=== PATIENT | male | born 1970 | race Caucasian/White ===

== ENCOUNTER 2021-03-08 01:32 | Inpatient (IN) | payer MEDICAID ==
[2021-03-08] VITALS (99 sets, daily range): BP systolic 76–178; BP diastolic 46–126
[~2021-03-08] VITALS: Ht 185.4 cm; Wt 85.6 kg
[2021-03-08] MEDS ORDERED: MORPHINE SULFATE INJECTION 2 MG/ML SYRG IV PRN ×2 (01:45→03:45)
[2021-03-08] MEDS: NOREPINEPHRINE 8 MG/250ML KIT 250 ML IV SCH (01:45)
[2021-03-08] MEDS ORDERED: NITROGLYCERIN 0.4 MG SL TAB SL PRN (01:45)
[2021-03-08] MEDS ORDERED: SODIUM BICARBONATE 50ML VIAL 50 ML in D5W 5% 1,000 ML IV SCH (01:45)
[2021-03-08] MEDS ORDERED: SODIUM BICARBONATE 8.4 % INJ 50ML VIAL IV ONE (02:23)
[2021-03-08 02:24] LABS: Eosinophils # (auto) 0 10 ^3/uL (0-0.8); Lymphocytes # (auto) 0.3 10 ^3/uL (0.4-5.4); Nucleated Red Blood Cells % 0.2 %; White Blood Cell 9.4 10^3/uL (4.4-10.8)
[2021-03-08 02:48] LABS: Basophils # (auto) 0.2 10 ^3/uL (0-0.2); Basophils % (auto) 2.5 % (0.0-2.0); Eosinophils % (auto) 0.3 % (0.0-7.0); Hematocrit 34.8 % (41.0-53.0); Hemoglobin 11.8 g/dL (13.5-17.5); Lymphocytes % (auto) 3.2 % (10.0-50.0); Mean Corpuscular Hemoglobin 31.5 pg (28.0-32.0); Mean Corpuscular Hgb Conc. 33.8 g/dL (32.0-36.0); Mean Corpuscular Volume 93.3 fL (80.0-100.0); Monocytes # (auto) 0.1 10 ^3/uL (0-1.3); Monocytes % (auto) 1.5 % (0.0-12.0); Neutrophils # (auto) 8.7 10 ^3/uL (1.6-8.6); Neutrophils % (auto) 92.5 % (37.0-80.0); Red Blood Cells 3.73 10^6/uL (4.5-5.90); Red Cell Distribution Width 14.7 % (11.8-14.3)
[2021-03-08 03:30] LABS: Calcium 6.3 mg/dL (8.5-10.1); Potassium 3.8 mmol/L (3.5-5.1)
[2021-03-08 03:45] LABS: BUN/Creatinine Ratio 11.2; Bilirubin, Total 4.6 mg/dL (0.2-1.0); Total Protein 5.5 g/dL (6.4-8.2); Uric Acid 10.5 mg/dL (3.5-7.2)
[2021-03-08] MEDS: PIPERACILLIN-TAZOB 2.25GM 50 ML IV SCH ×3 (06:09→21:37)
[2021-03-08 09:28] LABS: INR 1.85 (0.9-1.15); Partial Thromboplastin Time 36.9 sec (23.0-31.2)
[2021-03-08] MEDS ORDERED: ENOXAPARIN SOD 120 MG/0.8 ML SYRINGE SC SCH (10:00)
[2021-03-08] MEDS ORDERED: SODIUM CHLORIDE 0.9% 1,000 ML IV SCH (11:00)
[2021-03-08] MEDS: PANTOPRAZOLE 40 MG/10 ML VIAL INJ IV SCH (12:50)
[2021-03-08 13:18] LABS: Basophils # (auto) 0 10 ^3/uL (0-0.2); Eosinophils # (auto) 0 10 ^3/uL (0-0.8); Hemoglobin 11.4 g/dL (13.5-17.5); Lymphocytes # (auto) 0.3 10 ^3/uL (0.4-5.4); Monocytes # (auto) 0.2 10 ^3/uL (0-1.3); Monocytes % (auto) 2.6 % (0.0-12.0); Nucleated Red Blood Cells % 0.2 %
[2021-03-08 13:20] LABS: Basophils % (auto) 0.5 % (0.0-2.0); Hematocrit 32.5 % (41.0-53.0); Lymphocytes % (auto) 3.3 % (10.0-50.0); Mean Corpuscular Hemoglobin 32.5 pg (28.0-32.0); Mean Corpuscular Hgb Conc. 35.1 g/dL (32.0-36.0); Mean Corpuscular Volume 92.5 fL (80.0-100.0); Neutrophils # (auto) 8.5 10 ^3/uL (1.6-8.6); Neutrophils % (auto) 93.6 % (37.0-80.0); Red Blood Cells 3.51 10^6/uL (4.5-5.90); Red Cell Distribution Width 14.7 % (11.8-14.3); White Blood Cell 9.1 10^3/uL (4.4-10.8)
[2021-03-08 13:58] LABS: BUN/Creatinine Ratio 10.9; Calcium 6.6 mg/dL (8.5-10.1); Potassium 3.9 mmol/L (3.5-5.1)
[2021-03-08] MEDS: SODIUM BICARBONATE 50ML VIAL 50 ML in D5W 5% 1,000 ML IV SCH ×2 (14:29→21:37)
[2021-03-08 14:45] LABS: Urine Amorphous Crystal FEW /hpf (None Seen); Urine Bacteria FEW /hpf (None Seen); Urine Blood 3+ /uL (Negative); Urine Specific Gravity 1.011 (1.001-1.035); Urine WBC 15 /hpf (0 - 3)
[2021-03-08 14:49] LABS: Protein, Urine 110.5 mg/dL (0.0-11.9)
[2021-03-08] MEDS: THIAMINE 100mg/ml INJ (200mg/2ml VIAL) IV SCH (19:35)
[2021-03-08 22:56] LABS: Albumin 2.6 g/dL (3.4-5.0); BUN/Creatinine Ratio 10.3; Calcium 6.4 mg/dL (8.5-10.1)
[2021-03-08 23:06] LABS: Bilirubin, Total 5.8 mg/dL (0.2-1.0); Total Protein 5.1 g/dL (6.4-8.2)
[2021-03-09] VITALS (95 sets, daily range): BP systolic 85–131; BP diastolic 49–74
[2021-03-09] MEDS: NOREPINEPHRINE 8 MG/250ML KIT 250 ML IV SCH (01:45)
[2021-03-09] MEDS ORDERED: VANCOMYCIN PER PHARMACY 0 MG IV SCH (02:15)
[2021-03-09] MEDS ORDERED: VANCOMYCIN 1GM/250ML 250 ML IV ONE (03:00)
[2021-03-09 03:50] LABS: Basophils # (auto) 0 10 ^3/uL (0-0.2); Basophils % (auto) 0.1 % (0.0-2.0); Eosinophils # (auto) 0 10 ^3/uL (0-0.8); Eosinophils % (auto) 0.1 % (0.0-7.0); Hematocrit 30.3 % (41.0-53.0); Hemoglobin 10.7 g/dL (13.5-17.5); Lymphocytes # (auto) 0.4 10 ^3/uL (0.4-5.4); Lymphocytes % (auto) 4.5 % (10.0-50.0); Mean Corpuscular Hemoglobin 32.8 pg (28.0-32.0); Mean Corpuscular Hgb Conc. 35.4 g/dL (32.0-36.0); Mean Corpuscular Volume 92.6 fL (80.0-100.0); Monocytes # (auto) 0.2 10 ^3/uL (0-1.3); Monocytes % (auto) 3.1 % (0.0-12.0); Neutrophils # (auto) 7.3 10 ^3/uL (1.6-8.6); Neutrophils % (auto) 92.2 % (37.0-80.0); Nucleated Red Blood Cells % 0.4 %; Red Blood Cells 3.27 10^6/uL (4.5-5.90); Red Cell Distribution Width 14.7 % (11.8-14.3); White Blood Cell 7.9 10^3/uL (4.4-10.8)
[2021-03-09 04:01] LABS: Albumin 2.4 g/dL (3.4-5.0); Anion Gap 12 (5-15); Calcium 6.2 mg/dL (8.5-10.1); Carbon Dioxide 27 mmol/L (21-32); Chloride 101 mmol/L (98-107); Glucose 111 mg/dL (74-106); Potassium 3.4 mmol/L (3.5-5.1); Sodium 140 mmol/L (136-145)
[2021-03-09 04:12] LABS: INR 1.61 (0.9-1.15); Partial Thromboplastin Time 38.4 sec (23.0-31.2)
[2021-03-09 04:17] LABS: Alanine Aminotransferase 1896 U/L (16-61); Alkaline Phosphatase 52 U/L (45-117); Aspartate Aminotransferase 984 U/L (15-37); BUN/Creatinine Ratio 11.1; Bilirubin, Total 5.8 mg/dL (0.2-1.0); Cholesterol < 50 mg/dL (< 200); Creatine Kinase IFCC 1701 U/L (39-308); GFR African American 9 mL/min; GFR Non-African American 7 mL/min; HDL Cholesterol 10 mg/dL (40-59); LDL Cholesterol 15 mg/dL (< 100); Total Protein 4.8 g/dL (6.4-8.2); Triglycerides 112 mg/dL (< 150)
[2021-03-09 04:24] LABS: Blood Urea Nitrogen 93 mg/dL (7-18)
[2021-03-09] MEDS ORDERED: MIDAZOLAM HCL 2MG/2ML 2ml VIAL (1mg/ml) ONE (04:42)
[2021-03-09] MEDS ORDERED: fentaNYL CITRATE 100 MCG/2 ML VL ONE (04:42)
[2021-03-09] MEDS ORDERED: MORPHINE SULF PF 2 MG/2 ML SYRG ONE (04:42)
[2021-03-09] MEDS ORDERED: oxyTOCIN 10 UNIT/ML 10ML VIAL ONE (04:58)
[2021-03-09] MEDS: SODIUM BICARBONATE 50ML VIAL 50 ML in D5W 5% 1,000 ML IV SCH (06:00)
[2021-03-09] MEDS: PIPERACILLIN-TAZOB 2.25GM 50 ML IV SCH (06:00)
[2021-03-09] MEDS: IPRATROPIUM BROM 0.5 MG/2.5ML INH SOL NEB PRN (07:06)
[2021-03-09] MEDS: ALBUTEROL SULF 2.5 MG/0.5ML(0.5%) NEB SOLN NEB PRN (07:06)
[2021-03-09] MEDS: PROPOFOL 100 ML IV SCH (08:29)
[2021-03-09] MEDS: PANTOPRAZOLE 40 MG/10 ML VIAL INJ IV SCH (09:16)
[2021-03-09] MEDS: THIAMINE 100mg/ml INJ (200mg/2ml VIAL) IV SCH (09:17)
[2021-03-09 10:08] LABS: Hepatitis B Surface Antibody Negative
[2021-03-09 10:23] LABS: Albumin 2.4 g/dL (3.4-5.0); Calcium 6.5 mg/dL (8.5-10.1); Potassium 3.3 mmol/L (3.5-5.1)
[2021-03-09 10:31] LABS: Bilirubin, Total 6.2 mg/dL (0.2-1.0)
[2021-03-09 10:42] LABS: Hepatitis A Total Antibody Negative
[2021-03-09] MEDS: CALCIUM ACETATE 667 MG CAP PO SCH ×3 (10:43→21:53)
[2021-03-09] MEDS: POTASSIUM CHL 20MEQ/100ML 100 ML IV SCH ×2 (10:43→12:37)
[2021-03-09] MEDS: SOD CHL 0.45% 1,000 ML IV SCH ×2 (10:43→18:10)
[2021-03-09 11:10] LABS: Alcohol, Urine < 3.0 mg/dL (0-10); Amphetamine Screen, Urine POSITIVE (NEGATIVE); Barbiturate Scree,Urine NEGATIVE (NEGATIVE); Benzodiazephine Screen, Urine POSITIVE (NEGATIVE); Cannabinoid Screen, Urine NEGATIVE (NEGATIVE); Cocaine Screen, Urine NEGATIVE (NEGATIVE); Opiate Scree,Urine NEGATIVE (NEGATIVE)
[2021-03-09 11:18] LABS: Phencyclidine Screen, Urine NEGATIVE (NEGATIVE)
[2021-03-09] MEDS: MEROPENEM 1GM IVPB 100 ML IV SCH (12:37)
[2021-03-09 12:38] LABS: Hepatitis A Ab IgM Negative; Hepatitis B Core IgM Negative
[2021-03-09 12:39] LABS: Hepatitis B Core Total AB Negative; Hepatitis B Surface Antigen Negative (Negative); Hepatitis C Antibody Negative (Negative)
[2021-03-09] MEDS ORDERED: MEROPENEM 1GM IVPB 100 ML IV SCH (14:00)
[2021-03-09 22:42] LABS: Albumin 2.5 g/dL (3.4-5.0); Calcium 6.9 mg/dL (8.5-10.1); Potassium 3.7 mmol/L (3.5-5.1)
[2021-03-09 22:50] LABS: BUN/Creatinine Ratio 11.3; Bilirubin, Total 7.1 mg/dL (0.2-1.0); Total Protein 5.3 g/dL (6.4-8.2)
[2021-03-10] VITALS (107 sets, daily range): BP systolic 104–129; BP diastolic 67–84
[2021-03-10] MEDS: NOREPINEPHRINE 8 MG/250ML KIT 250 ML IV SCH (01:45)
[2021-03-10] MEDS: SOD CHL 0.45% 1,000 ML IV SCH ×3 (02:30→17:30)
[2021-03-10 03:27] LABS: Basophils # (auto) 0 10 ^3/uL (0-0.2); Basophils % (auto) 0.4 % (0.0-2.0); Eosinophils # (auto) 0 10 ^3/uL (0-0.8); Eosinophils % (auto) 0.3 % (0.0-7.0); Hematocrit 32.5 % (41.0-53.0); Hemoglobin 11.4 g/dL (13.5-17.5); Lymphocytes # (auto) 0.5 10 ^3/uL (0.4-5.4); Lymphocytes % (auto) 5.3 % (10.0-50.0); Mean Corpuscular Hemoglobin 32.2 pg (28.0-32.0); Mean Corpuscular Hgb Conc. 35.2 g/dL (32.0-36.0); Mean Corpuscular Volume 91.7 fL (80.0-100.0); Monocytes # (auto) 0.7 10 ^3/uL (0-1.3); Monocytes % (auto) 7.3 % (0.0-12.0); Neutrophils # (auto) 8.6 10 ^3/uL (1.6-8.6); Neutrophils % (auto) 86.7 % (37.0-80.0); Nucleated Red Blood Cells % 0.1 %; Red Blood Cells 3.54 10^6/uL (4.5-5.90); Red Cell Distribution Width 14.6 % (11.8-14.3); White Blood Cell 9.9 10^3/uL (4.4-10.8)
[2021-03-10 04:16] LABS: Calcium 6.9 mg/dL (8.5-10.1); Potassium 3.9 mmol/L (3.5-5.1)
[2021-03-10 04:19] LABS: BUN/Creatinine Ratio 11.3; Phosphorus 7.3 mg/dL (2.5-4.90); Uric Acid 12.8 mg/dL (3.5-7.2)
[2021-03-10] MEDS: CALCIUM ACETATE 667 MG CAP PO SCH ×3 (06:33→23:19)
[2021-03-10] MEDS: PROPOFOL 100 ML IV SCH (08:30)
[2021-03-10] MEDS: PANTOPRAZOLE 40 MG/10 ML VIAL INJ IV SCH (09:16)
[2021-03-10] MEDS: MEROPENEM 1GM IVPB 100 ML IV SCH (09:16)
[2021-03-10] MEDS: THIAMINE 100mg/ml INJ (200mg/2ml VIAL) IV SCH (09:17)
[2021-03-10 10:44] LABS: Albumin 2.4 g/dL (3.4-5.0); Calcium 7.2 mg/dL (8.5-10.1); Potassium 3.9 mmol/L (3.5-5.1)
[2021-03-10 10:53] LABS: BUN/Creatinine Ratio 11.5; Bilirubin, Total 6.7 mg/dL (0.2-1.0); Total Protein 5.3 g/dL (6.4-8.2)
[2021-03-10] MEDS ORDERED: FUROSEMIDE 20 MG/2 ML VIAL IV ONE (11:30)
[2021-03-10] MEDS ORDERED: ceFAZolin 1GM/50ML 50 ML IV SCH (14:00)
[2021-03-10] MEDS ORDERED: ceFAZolin 1GM/50ML 50 ML IV ONE (14:00)
[2021-03-10] MEDS: ceFAZolin 1GM/50ML 50 ML IV SCH (23:19)
[2021-03-11] VITALS (90 sets, daily range): BP systolic 113–146; BP diastolic 73–106
[2021-03-11 00:03] LABS: Albumin 2.4 g/dL (3.4-5.0); BUN/Creatinine Ratio 11.7; Calcium 7.3 mg/dL (8.5-10.1); Potassium 3.6 mmol/L (3.5-5.1)
[2021-03-11 00:19] LABS: Bilirubin, Total 6.6 mg/dL (0.2-1.0); Total Protein 5.6 g/dL (6.4-8.2)
[2021-03-11] MEDS: NOREPINEPHRINE 8 MG/250ML KIT 250 ML IV SCH (01:45)
[2021-03-11 03:59] LABS: Hematocrit 34.8 % (41.0-53.0); Hemoglobin 12.3 g/dL (13.5-17.5); Mean Corpuscular Hemoglobin 32.2 pg (28.0-32.0); Mean Corpuscular Hgb Conc. 35.2 g/dL (32.0-36.0); Mean Corpuscular Volume 91.2 fL (80.0-100.0); Red Blood Cells 3.81 10^6/uL (4.5-5.90); Red Cell Distribution Width 14.7 % (11.8-14.3); White Blood Cell 8.5 10^3/uL (4.4-10.8)
[2021-03-11 04:20] LABS: BUN/Creatinine Ratio 13.1; Calcium 7.5 mg/dL (8.5-10.1); Potassium 3.5 mmol/L (3.5-5.1)
[2021-03-11 04:23] LABS: Basophils % (manual) 0 (0.0-2.0); Blast Cells 0; Eosinophils % (manual) 0 (0-7); Myelocytes % 0; Promyelocytes % 0; Reactive Lymphocytes 0
[2021-03-11 05:49] LABS: Band Neutrophils % (manual) 3; Lymphocytes % (manual) 7 (10.0-50.0); Metamyelocytes % 1; Monocytes % (manual) 6 (0-12)
[2021-03-11] MEDS: CALCIUM ACETATE 667 MG CAP PO SCH ×3 (06:13→22:00)
[2021-03-11] MEDS: PROPOFOL 100 ML IV SCH (08:30)
[2021-03-11 09:22] LABS: INR 1.21 (0.9-1.15)
[2021-03-11] MEDS: POTASSIUM CHL 20MEQ/100ML 100 ML IV SCH ×2 (10:03→12:15)
[2021-03-11] MEDS: ceFAZolin 1GM/50ML 50 ML IV SCH ×2 (10:03→21:04)
[2021-03-11] MEDS: PANTOPRAZOLE 40 MG/10 ML VIAL INJ IV SCH (10:04)
[2021-03-11] MEDS: THIAMINE 100mg/ml INJ (200mg/2ml VIAL) IV SCH (10:04)
[2021-03-11] MEDS: SOD CHL 0.45% 1,000 ML IV SCH ×2 (11:21→17:44)
[2021-03-11] MEDS ORDERED: Jevity 1.2 Cal/Fiber 1 Liter GT SCH (15:30)
[2021-03-12] VITALS (67 sets, daily range): BP systolic 124–167; BP diastolic 78–113
[2021-03-12 04:53] LABS: Basophils # (auto) 0.1 10 ^3/uL (0-0.2); Basophils % (auto) 0.6 % (0.0-2.0); Eosinophils # (auto) 0.2 10 ^3/uL (0-0.8); Eosinophils % (auto) 2.1 % (0.0-7.0); Hematocrit 35.7 % (41.0-53.0); Hemoglobin 12.4 g/dL (13.5-17.5); Lymphocytes # (auto) 0.4 10 ^3/uL (0.4-5.4); Lymphocytes % (auto) 4.9 % (10.0-50.0); Mean Corpuscular Hemoglobin 31.6 pg (28.0-32.0); Mean Corpuscular Hgb Conc. 34.7 g/dL (32.0-36.0); Mean Corpuscular Volume 91.3 fL (80.0-100.0); Monocytes % (auto) 12.7 % (0.0-12.0); Neutrophils # (auto) 6.3 10 ^3/uL (1.6-8.6); Neutrophils % (auto) 79.7 % (37.0-80.0); Red Blood Cells 3.91 10^6/uL (4.5-5.90); Red Cell Distribution Width 14.8 % (11.8-14.3); White Blood Cell 7.9 10^3/uL (4.4-10.8)
[2021-03-12 05:10] LABS: Calcium 7.7 mg/dL (8.5-10.1); Potassium 3.2 mmol/L (3.5-5.1)
[2021-03-12] MEDS: CALCIUM ACETATE 667 MG CAP PO SCH ×4 (06:00→22:00)
[2021-03-12] MEDS: PROPOFOL 100 ML IV SCH (08:30)
[2021-03-12] MEDS: NOREPINEPHRINE 8 MG/250ML KIT 250 ML IV SCH (08:46)
[2021-03-12] MEDS: ceFAZolin 1GM/50ML 50 ML IV SCH ×2 (09:27→21:04)
[2021-03-12] MEDS: PANTOPRAZOLE 40 MG/10 ML VIAL INJ IV SCH (09:31)
[2021-03-12] MEDS: THIAMINE 100mg/ml INJ (200mg/2ml VIAL) IV SCH (09:31)
[2021-03-12] MEDS: SOD CHL 0.45% 1,000 ML IV SCH ×2 (10:46→18:26)
[2021-03-12] MEDS: POTASSIUM CHL 20MEQ/100ML 100 ML IV SCH ×3 (10:46→14:51)
[2021-03-12 14:09] LABS: Calcium 7.5 mg/dL (8.5-10.1); Potassium 3.3 mmol/L (3.5-5.1)
[2021-03-12] MEDS ORDERED: TEMA30CA PO (17:29)
[2021-03-12] MEDS ORDERED: CLON1TAB PO (17:29)
[2021-03-12] MEDS ORDERED: GABA300C10 PO (17:29)
[2021-03-12] MEDS ORDERED: DIPH25TA31 PO (17:29)
[2021-03-12] MEDS ORDERED: OLAN1TAB19 PO (17:29)
[2021-03-12] MEDS: IPRATROPIUM BROM 0.5 MG/2.5ML INH SOL NEB PRN (18:54)
[2021-03-12] MEDS: ALBUTEROL SULF 2.5 MG/0.5ML(0.5%) NEB SOLN NEB PRN (18:54)
[2021-03-13] VITALS (71 sets, daily range): BP systolic 127–168; BP diastolic 74–106
[2021-03-13] MEDS: NOREPINEPHRINE 8 MG/250ML KIT 250 ML IV SCH (01:45)
[2021-03-13] MEDS: SOD CHL 0.45% 1,000 ML IV SCH ×2 (02:30→17:26)
[2021-03-13] MEDS: CALCIUM ACETATE 667 MG CAP PO SCH ×3 (06:00→19:43)
[2021-03-13 06:26] LABS: Hematocrit 36.3 % (41.0-53.0); Hemoglobin 12.8 g/dL (13.5-17.5); Mean Corpuscular Hemoglobin 32.3 pg (28.0-32.0); Mean Corpuscular Hgb Conc. 35.3 g/dL (32.0-36.0); Mean Corpuscular Volume 91.5 fL (80.0-100.0); Red Blood Cells 3.97 10^6/uL (4.5-5.90); Red Cell Distribution Width 14.9 % (11.8-14.3); White Blood Cell 8.6 10^3/uL (4.4-10.8)
[2021-03-13 06:33] LABS: Basophils % (manual) 0 (0.0-2.0); Blast Cells 0; Eosinophils % (manual) 0 (0-7); Metamyelocytes % 0; Myelocytes % 0; Promyelocytes % 0; Reactive Lymphocytes 0
[2021-03-13] MEDS: IPRATROPIUM BROM 0.5 MG/2.5ML INH SOL NEB PRN (06:40)
[2021-03-13] MEDS: ALBUTEROL SULF 2.5 MG/0.5ML(0.5%) NEB SOLN NEB PRN (06:40)
[2021-03-13 07:59] LABS: Albumin 2.4 g/dL (3.4-5.0); Magnesium 2.6 mg/dL (1.6-2.6); Potassium 3.4 mmol/L (3.5-5.1)
[2021-03-13 08:05] LABS: BUN/Creatinine Ratio 16.6; Bilirubin, Total 4.5 mg/dL (0.2-1.0); Total Protein 5.8 g/dL (6.4-8.2)
[2021-03-13] MEDS: PROPOFOL 100 ML IV SCH (08:30)
[2021-03-13] MEDS: ceFAZolin 1GM/50ML 50 ML IV SCH ×2 (08:55→20:39)
[2021-03-13] MEDS: PANTOPRAZOLE 40 MG/10 ML VIAL INJ IV SCH (09:53)
[2021-03-13] MEDS: THIAMINE 100mg/ml INJ (200mg/2ml VIAL) IV SCH (09:53)
[2021-03-13] MEDS: ENOXAPARIN SOD 30 MG/0.3 ML SYRINGE SC SCH (09:54)
[2021-03-13 11:29] LABS: Band Neutrophils % (manual) 2; Lymphocytes % (manual) 7 (10.0-50.0); Monocytes % (manual) 12 (0-12)
[2021-03-13] MEDS: POTASSIUM CHL 20MEQ/100ML 100 ML IV SCH ×2 (13:02→14:52)
[2021-03-14] VITALS (83 sets, daily range): BP systolic 131–181; BP diastolic 75–123
[2021-03-14] MEDS: SOD CHL 0.45% 1,000 ML IV SCH ×4 (00:42→19:20)
[2021-03-14] MEDS: NOREPINEPHRINE 8 MG/250ML KIT 250 ML IV SCH ×2 (01:45→22:58)
[2021-03-14 03:44] LABS: Hematocrit 35.1 % (41.0-53.0); Hemoglobin 12.2 g/dL (13.5-17.5); Mean Corpuscular Hemoglobin 31.9 pg (28.0-32.0); Mean Corpuscular Hgb Conc. 34.8 g/dL (32.0-36.0); Mean Corpuscular Volume 91.6 fL (80.0-100.0); Red Blood Cells 3.84 10^6/uL (4.5-5.90); White Blood Cell 9.5 10^3/uL (4.4-10.8)
[2021-03-14 03:59] LABS: Basophils % (manual) 0 (0.0-2.0); Blast Cells 0; Myelocytes % 0; Promyelocytes % 0; Reactive Lymphocytes 0
[2021-03-14 04:04] LABS: BUN/Creatinine Ratio 19.7; Calcium 8.1 mg/dL (8.5-10.1); Potassium 3.5 mmol/L (3.5-5.1)
[2021-03-14] MEDS: CALCIUM ACETATE 667 MG CAP PO SCH ×4 (04:29→21:41)
[2021-03-14 05:12] LABS: Band Neutrophils % (manual) 10; Eosinophils % (manual) 1 (0-7); Lymphocytes % (manual) 5 (10.0-50.0); Metamyelocytes % 1; Monocytes % (manual) 8 (0-12)
[2021-03-14] MEDS: PROPOFOL 100 ML IV SCH (08:30)
[2021-03-14] MEDS: ceFAZolin 1GM/50ML 50 ML IV SCH ×2 (08:51→21:04)
[2021-03-14] MEDS: PANTOPRAZOLE 40 MG/10 ML VIAL INJ IV SCH (09:53)
[2021-03-14] MEDS: ENOXAPARIN SOD 30 MG/0.3 ML SYRINGE SC SCH (09:54)
[2021-03-14] MEDS: THIAMINE 100mg/ml INJ (200mg/2ml VIAL) IV SCH (09:54)
[2021-03-14] MEDS: hydrALAZINE HCL 20 MG/ML VL IV PRN (12:05)
[2021-03-14] MEDS ORDERED: amLODIPine BESYLATE 5 MG TAB ONE (15:59)
[2021-03-14] MEDS ORDERED: clonazePAM 0.5 MG TAB PO ONE (16:00)
[2021-03-14] MEDS ORDERED: amLODIPine BESYLATE 5 MG TAB PO ONE (16:00)
[2021-03-14] MEDS: GABAPENTIN 300 MG CAP PO SCH (21:41)
[2021-03-14] MEDS: OLANZapine 5 MG TAB PO SCH (21:42)
[2021-03-14] MEDS: diphenhdrAMINE HCL 25 MG CAP PO SCH (22:03)
[2021-03-15] VITALS (9 sets, daily range): BP systolic 12–165; BP diastolic 86–100
[2021-03-15] MEDS: hydrALAZINE HCL 20 MG/ML VL IV PRN ×2 (00:15→06:42)
[2021-03-15] MEDS: SOD CHL 0.45% 1,000 ML IV SCH (04:46)
[2021-03-15 06:28] LABS: Basophils # (auto) 0 10 ^3/uL (0-0.2); Basophils % (auto) 0.3 % (0.0-2.0); Eosinophils # (auto) 0.1 10 ^3/uL (0-0.8); Eosinophils % (auto) 0.5 % (0.0-7.0); Hematocrit 36.1 % (41.0-53.0); Hemoglobin 12.4 g/dL (13.5-17.5); Lymphocytes # (auto) 0.6 10 ^3/uL (0.4-5.4); Lymphocytes % (auto) 5.8 % (10.0-50.0); Mean Corpuscular Hemoglobin 31.7 pg (28.0-32.0); Mean Corpuscular Hgb Conc. 34.3 g/dL (32.0-36.0); Mean Corpuscular Volume 92.4 fL (80.0-100.0); Monocytes # (auto) 0.9 10 ^3/uL (0-1.3); Neutrophils # (auto) 9.5 10 ^3/uL (1.6-8.6); Neutrophils % (auto) 85.4 % (37.0-80.0); Nucleated Red Blood Cells % 0.1 %; Red Cell Distribution Width 15.4 % (11.8-14.3); White Blood Cell 11.1 10^3/uL (4.4-10.8)
[2021-03-15 06:38] LABS: BUN/Creatinine Ratio 23.7; Calcium 8.3 mg/dL (8.5-10.1); Potassium 3.5 mmol/L (3.5-5.1)
[2021-03-15] MEDS: CALCIUM ACETATE 667 MG CAP PO SCH ×2 (06:40→14:02)
[2021-03-15] MEDS: diphenhdrAMINE HCL 25 MG CAP PO SCH (06:40)
[2021-03-15] MEDS: LORazepam 2MG/ML-1ML VIAL IV PRN ×2 (06:41→21:33)
[2021-03-15] MEDS: D5W 5% 1,000 ML IV SCH ×2 (08:41→18:27)
[2021-03-15] MEDS: ceFAZolin 1GM/50ML 50 ML IV SCH ×2 (08:44→21:32)
[2021-03-15] MEDS: THIAMINE 100mg/ml INJ (200mg/2ml VIAL) IV SCH (10:27)
[2021-03-15] MEDS: ENOXAPARIN SOD 30 MG/0.3 ML SYRINGE SC SCH (10:27)
[2021-03-15] MEDS: PANTOPRAZOLE 40 MG/10 ML VIAL INJ IV SCH (10:29)
[2021-03-15] MEDS ORDERED: diphenhdrAMINE HCL 25 MG CAP PO PRN (10:30)
[2021-03-15] MEDS: OLANZapine 5 MG TAB PO SCH (10:30)
[2021-03-15] MEDS: amLODIPine BESYLATE 5 MG TAB PO SCH (10:30)
[2021-03-15] MEDS: clonazePAM 0.5 MG TAB PO SCH (11:04)
[2021-03-15 18:18] LABS: BUN/Creatinine Ratio 24.5; Calcium 8.3 mg/dL (8.5-10.1); Potassium 3.7 mmol/L (3.5-5.1)
[2021-03-15] MEDS: ALBUTEROL SULF 2.5 MG/0.5ML(0.5%) NEB SOLN NEB PRN (19:40)
[2021-03-15] MEDS: IPRATROPIUM BROM 0.5 MG/2.5ML INH SOL NEB PRN (19:40)
[2021-03-16] VITALS (15 sets, daily range): BP systolic 103–169; BP diastolic 72–102
[2021-03-16] MEDS: CALCIUM ACETATE 667 MG CAP PO SCH ×4 (00:31→22:00)
[2021-03-16] MEDS: OLANZapine 5 MG TAB PO SCH ×3 (00:31→22:00)
[2021-03-16] MEDS: GABAPENTIN 300 MG CAP PO SCH ×2 (00:31→22:00)
[2021-03-16] MEDS: NOREPINEPHRINE 8 MG/250ML KIT 250 ML IV SCH (00:32)
[2021-03-16 06:13] LABS: Hematocrit 32.4 % (41.0-53.0); Hemoglobin 11.2 g/dL (13.5-17.5); Mean Corpuscular Hemoglobin 32.6 pg (28.0-32.0); Mean Corpuscular Hgb Conc. 34.7 g/dL (32.0-36.0); Mean Corpuscular Volume 93.9 fL (80.0-100.0); Red Blood Cells 3.45 10^6/uL (4.5-5.90); Red Cell Distribution Width 15.8 % (11.8-14.3); White Blood Cell 9.8 10^3/uL (4.4-10.8)
[2021-03-16 06:26] LABS: Band Neutrophils % (manual) 0; Basophils % (manual) 0 (0.0-2.0); Blast Cells 0; Metamyelocytes % 0; Promyelocytes % 0; Reactive Lymphocytes 0
[2021-03-16 06:27] LABS: BUN/Creatinine Ratio 23.4; Calcium 8.4 mg/dL (8.5-10.1); Potassium 3.7 mmol/L (3.5-5.1)
[2021-03-16 06:55] LABS: Eosinophils % (manual) 6 (0-7); Lymphocytes % (manual) 5 (10.0-50.0); Monocytes % (manual) 7 (0-12); Myelocytes % 1
[2021-03-16] MEDS: D5W 5% 1,000 ML IV SCH ×4 (07:30→20:45)
[2021-03-16] MEDS: ceFAZolin 1GM/50ML 50 ML IV SCH ×2 (07:48→17:44)
[2021-03-16] MEDS: LORazepam 2MG/ML-1ML VIAL IV PRN ×2 (07:49→12:59)
[2021-03-16] MEDS: THIAMINE 100mg/ml INJ (200mg/2ml VIAL) IV SCH (10:30)
[2021-03-16] MEDS: ENOXAPARIN SOD 40 MG/0.4 ML SYRINGE SC SCH (10:30)
[2021-03-16] MEDS ORDERED: FUROSEMIDE 40 MG/4 ML VIAL ONE (10:44)
[2021-03-16] MEDS ORDERED: FUROSEMIDE 40 MG/4 ML VIAL IV ONE (10:50)
[2021-03-16] MEDS ORDERED: TPN PER PHARMACY 0 ML IV SCH (11:00)
[2021-03-16] MEDS: clonazePAM 0.5 MG TAB PO SCH (11:04)
[2021-03-16] MEDS: amLODIPine BESYLATE 5 MG TAB PO SCH (11:05)
[2021-03-16 11:18] LABS: Albumin 2.5 g/dL (3.4-5.0); Bilirubin, Direct 2.3 mg/dL (0-0.2); Magnesium 1.7 mg/dL (1.6-2.6)
[2021-03-16 11:22] LABS: Bilirubin, Total 3.2 mg/dL (0.2-1.0); Phosphorus 4.3 mg/dL (2.5-4.90); Pre Albumin 16.1 mg/dL (20.0-40.0); Total Protein 6.2 g/dL (6.4-8.2)
[2021-03-16 11:31] LABS: INR 1.12 (0.9-1.15); Partial Thromboplastin Time 24.2 sec (23.0-31.2)
[2021-03-16] MEDS ORDERED: HALOPERIDOL LACTATE 5 MG/ML INJ VIAL IM ONE (15:00)
[2021-03-16] MEDS: PANTOPRAZOLE 40 MG/10 ML VIAL INJ IV SCH (16:22)
[2021-03-16] MEDS ORDERED: TPN PER PHARMACY IV NR ×8 (20:00)
[2021-03-16] MEDS: ALBUTEROL SULF 2.5 MG/0.5ML(0.5%) NEB SOLN NEB PRN (21:58)
[2021-03-16] MEDS: IPRATROPIUM BROM 0.5 MG/2.5ML INH SOL NEB PRN (21:58)
[2021-03-17] VITALS (12 sets, daily range): BP systolic 120–155; BP diastolic 86–98
[2021-03-17] MEDS ORDERED: DEXTROSE (50%) 50ML SYRG IV SCH
[2021-03-17] MEDS: ceFAZolin 1GM/50ML 50 ML IV SCH ×3 (00:56→17:13)
[2021-03-17] MEDS: ACCU-CHEK COMFORT CURVE STRIP VI SCH ×6 (01:30→21:17)
[2021-03-17] MEDS: InsuLIN REG 1unit/0.01ml Soln (100units/ml) SC SCH ×5 (01:30→21:17)
[2021-03-17 05:38] LABS: Basophils # (auto) 0 10 ^3/uL (0-0.2); Basophils % (auto) 0.6 % (0.0-2.0); Eosinophils # (auto) 0.2 10 ^3/uL (0-0.8); Hematocrit 33.8 % (41.0-53.0); Hemoglobin 11.3 g/dL (13.5-17.5); Lymphocytes # (auto) 0.5 10 ^3/uL (0.4-5.4); Mean Corpuscular Hemoglobin 31.7 pg (28.0-32.0); Mean Corpuscular Hgb Conc. 33.3 g/dL (32.0-36.0); Monocytes # (auto) 0.8 10 ^3/uL (0-1.3); Monocytes % (auto) 9.5 % (0.0-12.0); Neutrophils # (auto) 7.2 10 ^3/uL (1.6-8.6); Neutrophils % (auto) 81.9 % (37.0-80.0); Red Blood Cells 3.56 10^6/uL (4.5-5.90); White Blood Cell 8.8 10^3/uL (4.4-10.8)
[2021-03-17 05:43] LABS: INR 1.13 (0.9-1.15)
[2021-03-17 05:48] LABS: Albumin 2.7 g/dL (3.4-5.0); Calcium 8.4 mg/dL (8.5-10.1); Magnesium 1.8 mg/dL (1.6-2.6); Potassium 3.4 mmol/L (3.5-5.1)
[2021-03-17] MEDS: CALCIUM ACETATE 667 MG CAP PO SCH ×3 (05:49→20:36)
[2021-03-17 05:51] LABS: BUN/Creatinine Ratio 23.7; Bilirubin, Total 2.8 mg/dL (0.2-1.0); Phosphorus 3.3 mg/dL (2.5-4.90); Total Protein 6.6 g/dL (6.4-8.2)
[2021-03-17] MEDS: HALOPERIDOL LACTATE 5 MG/ML INJ VIAL IM PRN ×2 (05:55→16:58)
[2021-03-17] MEDS ORDERED: POTASSIUM CHL 20MEQ/100ML 100 ML IV ONE (09:00)
[2021-03-17] MEDS: D5W 5% 1,000 ML IV SCH ×2 (09:15→09:58)
[2021-03-17] MEDS: amLODIPine BESYLATE 5 MG TAB PO SCH (09:34)
[2021-03-17] MEDS: PANTOPRAZOLE 40 MG/10 ML VIAL INJ IV SCH (09:34)
[2021-03-17] MEDS: THIAMINE 100mg/ml INJ (200mg/2ml VIAL) IV SCH (09:34)
[2021-03-17] MEDS: OLANZapine 5 MG TAB PO SCH ×2 (09:34→20:37)
[2021-03-17] MEDS: ENOXAPARIN SOD 40 MG/0.4 ML SYRINGE SC SCH (09:35)
[2021-03-17] MEDS: clonazePAM 0.5 MG TAB PO SCH (11:07)
[2021-03-17] MEDS: LORazepam 2MG/ML-1ML VIAL IV PRN ×2 (14:03→20:37)
[2021-03-17] MEDS: Ensure Enlive Strawberry 8oz Bottle PO SCH (18:40)
[2021-03-17] MEDS ORDERED: TPN PER PHARMACY IV NR ×9 (20:00)
[2021-03-17] MEDS: GABAPENTIN 300 MG CAP PO SCH (20:36)
[2021-03-17] MEDS: TEMAZEPAM 15 MG CAP PO PRN (20:38)
[2021-03-17] MEDS: IPRATROPIUM BROM 0.5 MG/2.5ML INH SOL NEB PRN (22:46)
[2021-03-17] MEDS: ALBUTEROL SULF 2.5 MG/0.5ML(0.5%) NEB SOLN NEB PRN (22:46)
[2021-03-18] MEDS: ceFAZolin 1GM/50ML 50 ML IV SCH ×3 (04:56→21:23)
[2021-03-18 05:08] LABS: Basophils # (auto) 0 10 ^3/uL (0-0.2); Basophils % (auto) 0.6 % (0.0-2.0); Eosinophils # (auto) 0.1 10 ^3/uL (0-0.8); Eosinophils % (auto) 1.6 % (0.0-7.0); Hematocrit 34.2 % (41.0-53.0); Hemoglobin 11.9 g/dL (13.5-17.5); Lymphocytes # (auto) 0.8 10 ^3/uL (0.4-5.4); Lymphocytes % (auto) 9.9 % (10.0-50.0); Mean Corpuscular Hemoglobin 32.7 pg (28.0-32.0); Mean Corpuscular Hgb Conc. 34.7 g/dL (32.0-36.0); Mean Corpuscular Volume 94.3 fL (80.0-100.0); Monocytes # (auto) 0.8 10 ^3/uL (0-1.3); Monocytes % (auto) 9.5 % (0.0-12.0); Neutrophils # (auto) 6.7 10 ^3/uL (1.6-8.6); Neutrophils % (auto) 78.4 % (37.0-80.0); Red Blood Cells 3.63 10^6/uL (4.5-5.90); Red Cell Distribution Width 15.2 % (11.8-14.3); White Blood Cell 8.5 10^3/uL (4.4-10.8)
[2021-03-18 05:30] VITALS: BP 138/84
[2021-03-18 05:30] LABS: Calcium 8.4 mg/dL (8.5-10.1); Potassium 3.6 mmol/L (3.5-5.1)
[2021-03-18 05:36] LABS: Albumin 2.7 g/dL (3.4-5.0); Bilirubin, Total 2.5 mg/dL (0.2-1.0); Magnesium 1.8 mg/dL (1.6-2.6); Phosphorus 2.9 mg/dL (2.5-4.90); Total Protein 6.9 g/dL (6.4-8.2)
[2021-03-18] MEDS: CALCIUM ACETATE 667 MG CAP PO SCH ×3 (06:12→21:23)
[2021-03-18] MEDS: InsuLIN REG 1unit/0.01ml Soln (100units/ml) SC SCH ×3 (06:13→18:00)
[2021-03-18] MEDS: Ensure Enlive Strawberry 8oz Bottle PO SCH ×3 (08:00→18:00)
[2021-03-18 09:00] VITALS: BP 142/82
[2021-03-18] MEDS: D5W 5% 1,000 ML IV SCH (10:15)
[2021-03-18] MEDS: THIAMINE 100mg/ml INJ (200mg/2ml VIAL) IV SCH (10:24)
[2021-03-18] MEDS: PANTOPRAZOLE 40 MG/10 ML VIAL INJ IV SCH (10:24)
[2021-03-18] MEDS: OLANZapine 5 MG TAB PO SCH ×2 (10:25→21:23)
[2021-03-18] MEDS: clonazePAM 0.5 MG TAB PO SCH (10:25)
[2021-03-18] MEDS: ENOXAPARIN SOD 40 MG/0.4 ML SYRINGE SC SCH (10:26)
[2021-03-18] MEDS: amLODIPine BESYLATE 5 MG TAB PO SCH (10:26)
[2021-03-18] MEDS: ACCU-CHEK COMFORT CURVE STRIP VI SCH ×2 (12:05→18:00)
[2021-03-18] MEDS: MORPHINE SULFATE INJECTION 2 MG/ML SYRG IV PRN (12:10)
[2021-03-18 13:00] VITALS: BP 144/95
[2021-03-18] MEDS: LORazepam 2MG/ML-1ML VIAL IV PRN (14:31)
[2021-03-18] MEDS ORDERED: LIDOCAINE 1% (LOCAL ANESTH.) PF 5ml SDV ID ONE (16:00)
[2021-03-18 17:00] VITALS: BP 145/91
[2021-03-18] MEDS ORDERED: TPN PER PHARMACY IV NR ×8 (20:00)
[2021-03-18] MEDS: SODIUM CHLOR 0.9% PF (SALINE LOCK) 10ML VIAL/SYR IV SCH (21:24)
[2021-03-18] MEDS: GABAPENTIN 300 MG CAP PO SCH (21:24)
[2021-03-18 22:00] VITALS: BP 139/85
[2021-03-19] MEDS: ACCU-CHEK COMFORT CURVE STRIP VI SCH ×5 (00:43→23:58)
[2021-03-19] MEDS: D5W 5% 1,000 ML IV SCH ×3 (00:43→13:57)
[2021-03-19 05:00] VITALS: BP 138/84
[2021-03-19 05:44] LABS: Basophils # (auto) 0 10 ^3/uL (0-0.2); Basophils % (auto) 0.4 % (0.0-2.0); Eosinophils # (auto) 0.1 10 ^3/uL (0-0.8); Eosinophils % (auto) 1.6 % (0.0-7.0); Hematocrit 34.2 % (41.0-53.0); Hemoglobin 11.8 g/dL (13.5-17.5); Lymphocytes # (auto) 0.8 10 ^3/uL (0.4-5.4); Lymphocytes % (auto) 10.6 % (10.0-50.0); Mean Corpuscular Hemoglobin 32.9 pg (28.0-32.0); Mean Corpuscular Hgb Conc. 34.5 g/dL (32.0-36.0); Mean Corpuscular Volume 95.5 fL (80.0-100.0); Monocytes # (auto) 0.8 10 ^3/uL (0-1.3); Monocytes % (auto) 10.3 % (0.0-12.0); Neutrophils # (auto) 5.9 10 ^3/uL (1.6-8.6); Neutrophils % (auto) 77.1 % (37.0-80.0); Nucleated Red Blood Cells % 0.1 %; Red Blood Cells 3.58 10^6/uL (4.5-5.90); Red Cell Distribution Width 15.5 % (11.8-14.3); White Blood Cell 7.6 10^3/uL (4.4-10.8)
[2021-03-19 05:53] LABS: Albumin 2.9 g/dL (3.4-5.0); Calcium 8.4 mg/dL (8.5-10.1); Magnesium 1.8 mg/dL (1.6-2.6); Potassium 3.8 mmol/L (3.5-5.1)
[2021-03-19 05:57] LABS: BUN/Creatinine Ratio 26.2; Phosphorus 3.5 mg/dL (2.5-4.90); Total Protein 7.1 g/dL (6.4-8.2)
[2021-03-19] MEDS: InsuLIN REG 1unit/0.01ml Soln (100units/ml) SC SCH ×5 (06:00→23:59)
[2021-03-19] MEDS: ceFAZolin 1GM/50ML 50 ML IV SCH ×3 (06:13→21:38)
[2021-03-19] MEDS: CALCIUM ACETATE 667 MG CAP PO SCH ×3 (06:13→21:40)
[2021-03-19] MEDS: Ensure Enlive Strawberry 8oz Bottle PO SCH ×3 (08:00→18:00)
[2021-03-19 08:30] VITALS: BP 133/76
[2021-03-19 09:00] VITALS: BP 126/80
[2021-03-19] MEDS: clonazePAM 0.5 MG TAB PO SCH (10:29)
[2021-03-19] MEDS: amLODIPine BESYLATE 5 MG TAB PO SCH (10:29)
[2021-03-19] MEDS: ENOXAPARIN SOD 40 MG/0.4 ML SYRINGE SC SCH (10:29)
[2021-03-19] MEDS: OLANZapine 5 MG TAB PO SCH ×2 (10:30→21:40)
[2021-03-19] MEDS: THIAMINE 100mg/ml INJ (200mg/2ml VIAL) IV SCH (10:30)
[2021-03-19] MEDS: SODIUM CHLOR 0.9% PF (SALINE LOCK) 10ML VIAL/SYR IV SCH ×2 (10:30→21:39)
[2021-03-19] MEDS: PANTOPRAZOLE 40 MG/10 ML VIAL INJ IV SCH (10:30)
[2021-03-19] MEDS: MORPHINE SULFATE INJECTION 2 MG/ML SYRG IV PRN (10:30)
[2021-03-19] MEDS: LORazepam 2MG/ML-1ML VIAL IV PRN (12:49)
[2021-03-19 13:00] VITALS: BP 133/76
[2021-03-19 16:50] VITALS: BP 142/70
[2021-03-19] MEDS ORDERED: TPN PER PHARMACY IV NR ×9 (20:00)
[2021-03-19] MEDS: GABAPENTIN 300 MG CAP PO SCH (21:40)
[2021-03-19 22:00] VITALS: BP 150/95
[2021-03-20] MEDS: LORazepam 2MG/ML-1ML VIAL IV PRN (01:05)
[2021-03-20 05:00] VITALS: BP 129/79
[2021-03-20] MEDS: ACCU-CHEK COMFORT CURVE STRIP VI SCH ×4 (05:56→23:22)
[2021-03-20] MEDS: CALCIUM ACETATE 667 MG CAP PO SCH ×3 (05:56→21:29)
[2021-03-20] MEDS: ceFAZolin 1GM/50ML 50 ML IV SCH ×3 (05:56→21:28)
[2021-03-20] MEDS: InsuLIN REG 1unit/0.01ml Soln (100units/ml) SC SCH ×4 (05:57→23:23)
[2021-03-20 06:02] LABS: Albumin 3.1 g/dL (3.4-5.0)
[2021-03-20 06:07] LABS: BUN/Creatinine Ratio 25.8; Bilirubin, Total 1.9 mg/dL (0.2-1.0); Phosphorus 3.3 mg/dL (2.5-4.90); Total Protein 7.5 g/dL (6.4-8.2)
[2021-03-20] MEDS: Ensure Enlive Strawberry 8oz Bottle PO SCH ×3 (08:00→18:00)
[2021-03-20 09:00] VITALS: BP 133/88
[2021-03-20] MEDS: clonazePAM 0.5 MG TAB PO SCH (10:11)
[2021-03-20] MEDS: OLANZapine 5 MG TAB PO SCH ×2 (10:11→21:29)
[2021-03-20] MEDS: PANTOPRAZOLE 40 MG/10 ML VIAL INJ IV SCH (10:13)
[2021-03-20] MEDS: amLODIPine BESYLATE 5 MG TAB PO SCH (10:13)
[2021-03-20] MEDS: THIAMINE 100mg/ml INJ (200mg/2ml VIAL) IV SCH (10:13)
[2021-03-20] MEDS: ENOXAPARIN SOD 40 MG/0.4 ML SYRINGE SC SCH (10:14)
[2021-03-20] MEDS: D5W 5% 1,000 ML IV SCH (10:15)
[2021-03-20] MEDS: SODIUM CHLOR 0.9% PF (SALINE LOCK) 10ML VIAL/SYR IV SCH ×2 (10:15→21:29)
[2021-03-20 12:44] VITALS: BP 131/83
[2021-03-20] MEDS ORDERED: cefTRIAXone 1GM/50ML D5W 50 ML IV ONE (14:15)
[2021-03-20] MEDS ORDERED: metroNIDAZOLE 500MG/100ML 100 ML IV ONE (14:15)
[2021-03-20 17:00] VITALS: BP 136/69
[2021-03-20] MEDS ORDERED: TPN PER PHARMACY IV NR ×9 (20:00)
[2021-03-20] MEDS: GABAPENTIN 300 MG CAP PO SCH (21:29)
[2021-03-20 22:00] VITALS: BP 138/77
[2021-03-20] MEDS ORDERED: FOLIC ACID 1 MG, MULTIPLE VITAMIN 10 ML, MAGNESIUM SULF SDV 50% 8 MEQ, THIAMINE INJ 100... INJ ONE ×5 (22:00)
[2021-03-20] MEDS: metroNIDAZOLE 500MG/100ML 100 ML IV SCH (23:05)
[2021-03-21 05:00] VITALS: BP 138/88
[2021-03-21] MEDS: ceFAZolin 1GM/50ML 50 ML IV SCH ×2 (05:22→18:15)
[2021-03-21] MEDS: ACCU-CHEK COMFORT CURVE STRIP VI SCH ×4 (05:23→23:13)
[2021-03-21] MEDS: InsuLIN REG 1unit/0.01ml Soln (100units/ml) SC SCH ×4 (05:23→23:13)
[2021-03-21 05:35] LABS: Calcium 8.6 mg/dL (8.5-10.1)
[2021-03-21 05:41] LABS: BUN/Creatinine Ratio 29.1; Bilirubin, Total 1.6 mg/dL (0.2-1.0); Pre Albumin 26.1 mg/dL (20.0-40.0); Total Protein 7.6 g/dL (6.4-8.2)
[2021-03-21] MEDS: CALCIUM ACETATE 667 MG CAP PO SCH ×3 (06:25→22:01)
[2021-03-21] MEDS: metroNIDAZOLE 500MG/100ML 100 ML IV SCH ×3 (06:25→22:00)
[2021-03-21] MEDS: ONDANSETRON HCL 4 MG/2 ML VIAL IV PRN (07:00)
[2021-03-21] MEDS: Ensure Enlive Strawberry 8oz Bottle PO SCH ×3 (08:00→18:14)
[2021-03-21] MEDS: cefTRIAXone 1GM/50ML D5W 50 ML IV SCH (08:28)
[2021-03-21 09:00] VITALS: BP 147/71
[2021-03-21] MEDS: amLODIPine BESYLATE 5 MG TAB PO SCH (09:02)
[2021-03-21] MEDS: PANTOPRAZOLE 40 MG/10 ML VIAL INJ IV SCH (09:39)
[2021-03-21] MEDS: OLANZapine 5 MG TAB PO SCH ×2 (09:40→22:01)
[2021-03-21] MEDS: THIAMINE 100mg/ml INJ (200mg/2ml VIAL) IV SCH (09:40)
[2021-03-21] MEDS: clonazePAM 0.5 MG TAB PO SCH (09:40)
[2021-03-21] MEDS: ENOXAPARIN SOD 40 MG/0.4 ML SYRINGE SC SCH (09:40)
[2021-03-21] MEDS: SODIUM CHLOR 0.9% PF (SALINE LOCK) 10ML VIAL/SYR IV SCH ×2 (09:40→22:01)
[2021-03-21] MEDS ORDERED: FOLIC ACID 1 MG, MULTIPLE VITAMIN 10 ML, MAGNESIUM SULF SDV 50% 8 MEQ, THIAMINE INJ 100... INJ SCH ×5 (12:00)
[2021-03-21 12:36] VITALS: BP 135/89
[2021-03-21] MEDS: ASPirin 81 mg TAB PO SCH (14:19)
[2021-03-21] MEDS: FOLIC ACID INJ SCH (15:44)
[2021-03-21] MEDS: THIAMINE INJ SCH (15:44)
[2021-03-21] MEDS: D5W 5% INJ SCH (15:44)
[2021-03-21 17:00] VITALS: BP 125/80
[2021-03-21] MEDS ORDERED: FAT EMULSION IV NR ×9 (20:00)
[2021-03-21] MEDS ORDERED: POTASSIUM PHOSPHATE IV NR ×9 (20:00)
[2021-03-21] MEDS ORDERED: [UNRECOGNIZED DRUG - OTHER] IV NR ×9 (20:00)
[2021-03-21] MEDS ORDERED: SODIUM CHLORIDE IV NR ×9 (20:00)
[2021-03-21] MEDS: GABAPENTIN 300 MG CAP PO SCH (22:01)
[2021-03-21] MEDS: TEMAZEPAM 15 MG CAP PO PRN (23:04)
[2021-03-22] MEDS: ceFAZolin 1GM/50ML 50 ML IV SCH ×3 (01:09→17:05)
[2021-03-22] MEDS: LORazepam 2MG/ML-1ML VIAL IV PRN (01:58)
[2021-03-22 04:56] VITALS: BP 128/83
[2021-03-22] MEDS: metroNIDAZOLE 500MG/100ML 100 ML IV SCH ×3 (05:25→21:18)
[2021-03-22] MEDS: ACCU-CHEK COMFORT CURVE STRIP VI SCH ×4 (05:25→23:24)
[2021-03-22] MEDS: CALCIUM ACETATE 667 MG CAP PO SCH ×3 (05:25→21:19)
[2021-03-22] MEDS: InsuLIN REG 1unit/0.01ml Soln (100units/ml) SC SCH ×4 (05:25→23:24)
[2021-03-22 07:42] VITALS: BP 123/78
[2021-03-22] MEDS: cefTRIAXone 1GM/50ML D5W 50 ML IV SCH (08:00)
[2021-03-22] MEDS: Ensure Enlive Strawberry 8oz Bottle PO SCH ×3 (08:04→18:00)
[2021-03-22 08:05] LABS: Basophils # (auto) 0 10 ^3/uL (0-0.2); Basophils % (auto) 0.4 % (0.0-2.0); Eosinophils # (auto) 0 10 ^3/uL (0-0.8); Eosinophils % (auto) 0.3 % (0.0-7.0); Hematocrit 34.3 % (41.0-53.0); Hemoglobin 12.1 g/dL (13.5-17.5); Lymphocytes # (auto) 0.3 10 ^3/uL (0.4-5.4); Lymphocytes % (auto) 4.9 % (10.0-50.0); Mean Corpuscular Hgb Conc. 35.4 g/dL (32.0-36.0); Mean Corpuscular Volume 93.5 fL (80.0-100.0); Monocytes # (auto) 0.7 10 ^3/uL (0-1.3); Monocytes % (auto) 10.9 % (0.0-12.0); Neutrophils # (auto) 5.1 10 ^3/uL (1.6-8.6); Neutrophils % (auto) 83.5 % (37.0-80.0); Nucleated Red Blood Cells % 0.1 %; Red Blood Cells 3.67 10^6/uL (4.5-5.90); Red Cell Distribution Width 14.6 % (11.8-14.3); White Blood Cell 6.1 10^3/uL (4.4-10.8)
[2021-03-22 08:19] LABS: INR 1.13 (0.9-1.15)
[2021-03-22 08:26] LABS: BUN/Creatinine Ratio 26.1; Calcium 8.4 mg/dL (8.5-10.1); Magnesium 1.9 mg/dL (1.6-2.6); Phosphorus 2.2 mg/dL (2.5-4.90)
[2021-03-22 08:28] LABS: Bilirubin, Total 1.4 mg/dL (0.2-1.0); Total Protein 7.6 g/dL (6.4-8.2)
[2021-03-22 08:37] VITALS: BP 123/78
[2021-03-22] MEDS: PANTOPRAZOLE 40 MG/10 ML VIAL INJ IV SCH (09:46)
[2021-03-22] MEDS: ASPirin 81 mg TAB PO SCH (09:46)
[2021-03-22] MEDS: SODIUM CHLOR 0.9% PF (SALINE LOCK) 10ML VIAL/SYR IV SCH ×2 (09:46→21:19)
[2021-03-22] MEDS: clonazePAM 0.5 MG TAB PO SCH (09:47)
[2021-03-22] MEDS: amLODIPine BESYLATE 5 MG TAB PO SCH (09:48)
[2021-03-22] MEDS: OLANZapine 5 MG TAB PO SCH ×2 (09:48→21:19)
[2021-03-22] MEDS: ENOXAPARIN SOD 40 MG/0.4 ML SYRINGE SC SCH (09:49)
[2021-03-22] MEDS ORDERED: SODIUM PHOSPHATES 20 MEQ in SODIUM CHL 0.9% 100 ML IV ONE (10:45)
[2021-03-22 11:59] VITALS: BP 107/65
[2021-03-22] MEDS ORDERED: METOPROLOL TARTRATE 1MG/1ML-5ML VIAL IV PRN (12:00)
[2021-03-22] MEDS: FOLIC ACID INJ SCH (12:14)
[2021-03-22] MEDS: THIAMINE INJ SCH (12:14)
[2021-03-22] MEDS: D5W 5% INJ SCH (12:14)
[2021-03-22] MEDS: ACETAMINOPHEN 325 MG TAB PO PRN (12:17)
[2021-03-22 17:05] VITALS: BP 120/73
[2021-03-22] MEDS ORDERED: LORazepam 2MG/ML-1ML VIAL IV PRN (19:45)
[2021-03-22] MEDS ORDERED: TPN PER PHARMACY IV NR ×11 (20:00)
[2021-03-22] MEDS: GABAPENTIN 300 MG CAP PO SCH (21:19)
[2021-03-22 22:00] VITALS: BP 140/83
[2021-03-22] MEDS: TEMAZEPAM 15 MG CAP PO PRN (23:27)
[2021-03-23] MEDS: ceFAZolin 1GM/50ML 50 ML IV SCH ×2 (02:11→10:15)
[2021-03-23 05:00] VITALS: BP 120/74
[2021-03-23] MEDS: MORPHINE SULFATE INJECTION 2 MG/ML SYRG IV PRN (05:19)
[2021-03-23] MEDS: InsuLIN REG 1unit/0.01ml Soln (100units/ml) SC SCH ×3 (06:00→18:00)
[2021-03-23] MEDS: ACCU-CHEK COMFORT CURVE STRIP VI SCH ×3 (06:05→18:00)
[2021-03-23] MEDS: CALCIUM ACETATE 667 MG CAP PO SCH ×3 (06:05→22:28)
[2021-03-23] MEDS: metroNIDAZOLE 500MG/100ML 100 ML IV SCH ×3 (06:05→22:27)
[2021-03-23 07:17] LABS: Basophils # (auto) 0.1 10 ^3/uL (0-0.2); Eosinophils # (auto) 0 10 ^3/uL (0-0.8); Eosinophils % (auto) 0.6 % (0.0-7.0); Hematocrit 33.8 % (41.0-53.0); Hemoglobin 11.5 g/dL (13.5-17.5); Lymphocytes # (auto) 0.5 10 ^3/uL (0.4-5.4); Lymphocytes % (auto) 10.3 % (10.0-50.0); Mean Corpuscular Hemoglobin 31.9 pg (28.0-32.0); Mean Corpuscular Hgb Conc. 34.1 g/dL (32.0-36.0); Mean Corpuscular Volume 93.5 fL (80.0-100.0); Monocytes # (auto) 0.8 10 ^3/uL (0-1.3); Monocytes % (auto) 15.7 % (0.0-12.0); Neutrophils # (auto) 3.9 10 ^3/uL (1.6-8.6); Neutrophils % (auto) 72.4 % (37.0-80.0); Nucleated Red Blood Cells % 0.1 %; Red Blood Cells 3.62 10^6/uL (4.5-5.90); Red Cell Distribution Width 14.6 % (11.8-14.3); White Blood Cell 5.3 10^3/uL (4.4-10.8)
[2021-03-23 07:32] LABS: Albumin 2.9 g/dL (3.4-5.0); Anion Gap 8 (5-15); Blood Urea Nitrogen 26 mg/dL (7-18); Calcium 8.1 mg/dL (8.5-10.1); Carbon Dioxide 26 mmol/L (21-32); Chloride 101 mmol/L (98-107); Glucose 140 mg/dL (74-106); Potassium 3.4 mmol/L (3.5-5.1); Sodium 135 mmol/L (136-145)
[2021-03-23 07:33] LABS: INR 1.24 (0.9-1.15); Partial Thromboplastin Time 28.1 sec (23.0-31.2)
[2021-03-23 07:39] LABS: Alanine Aminotransferase 63 U/L (16-61); Alkaline Phosphatase 129 U/L (45-117); Aspartate Aminotransferase 46 U/L (15-37); BUN/Creatinine Ratio 26.8; Bilirubin, Total 1.4 mg/dL (0.2-1.0); GFR African American 105 mL/min; GFR Non-African American 87 mL/min; Phosphorus 3.1 mg/dL (2.5-4.90); Total Protein 7.4 g/dL (6.4-8.2)
[2021-03-23] MEDS: Ensure Enlive Strawberry 8oz Bottle PO SCH ×3 (08:00→18:13)
[2021-03-23 09:00] VITALS: BP 106/74
[2021-03-23] MEDS: cefTRIAXone 1GM/50ML D5W 50 ML IV SCH (10:15)
[2021-03-23] MEDS: PANTOPRAZOLE 40 MG/10 ML VIAL INJ IV SCH (10:15)
[2021-03-23] MEDS: ENOXAPARIN SOD 40 MG/0.4 ML SYRINGE SC SCH (10:16)
[2021-03-23] MEDS: amLODIPine BESYLATE 5 MG TAB PO SCH (10:17)
[2021-03-23] MEDS: clonazePAM 0.5 MG TAB PO SCH (10:18)
[2021-03-23] MEDS: ASPirin 81 mg TAB PO SCH (10:18)
[2021-03-23] MEDS: OLANZapine 5 MG TAB PO SCH ×2 (10:18→22:28)
[2021-03-23] MEDS: SODIUM CHLOR 0.9% PF (SALINE LOCK) 10ML VIAL/SYR IV SCH ×2 (10:19→22:27)
[2021-03-23] MEDS ORDERED: POTASSIUM EFFERVESENT TAB 25 MEQ PO ONE (11:45)
[2021-03-23 13:00] VITALS: BP 120/76
[2021-03-23 17:00] VITALS: BP 115/68
[2021-03-23 21:36] VITALS: BP 113/75
[2021-03-23] MEDS: levETIRAcetam 500 MG TAB PO SCH (22:27)
[2021-03-23] MEDS: GABAPENTIN 300 MG CAP PO SCH (22:28)
[2021-03-24] MEDS: ACCU-CHEK COMFORT CURVE STRIP VI SCH ×5 (00:22→23:42)
[2021-03-24 05:04] VITALS: BP 109/69
[2021-03-24 05:36] LABS: Basophils # (auto) 0 10 ^3/uL (0-0.2); Basophils % (auto) 0.6 % (0.0-2.0); Eosinophils # (auto) 0 10 ^3/uL (0-0.8); Eosinophils % (auto) 0.6 % (0.0-7.0); Hematocrit 36.3 % (41.0-53.0); Hemoglobin 12.3 g/dL (13.5-17.5); Lymphocytes # (auto) 0.6 10 ^3/uL (0.4-5.4); Lymphocytes % (auto) 8.6 % (10.0-50.0); Mean Corpuscular Hemoglobin 31.6 pg (28.0-32.0); Mean Corpuscular Hgb Conc. 33.9 g/dL (32.0-36.0); Mean Corpuscular Volume 93.2 fL (80.0-100.0); Monocytes # (auto) 1.1 10 ^3/uL (0-1.3); Monocytes % (auto) 15.1 % (0.0-12.0); Neutrophils # (auto) 5.4 10 ^3/uL (1.6-8.6); Neutrophils % (auto) 75.1 % (37.0-80.0); Nucleated Red Blood Cells % 0.1 %; Red Blood Cells 3.89 10^6/uL (4.5-5.90); Red Cell Distribution Width 14.9 % (11.8-14.3); White Blood Cell 7.2 10^3/uL (4.4-10.8)
[2021-03-24] MEDS: metroNIDAZOLE 500MG/100ML 100 ML IV SCH ×3 (05:44→21:49)
[2021-03-24] MEDS: CALCIUM ACETATE 667 MG CAP PO SCH ×3 (05:45→21:50)
[2021-03-24] MEDS: InsuLIN REG 1unit/0.01ml Soln (100units/ml) SC SCH ×5 (05:45→23:42)
[2021-03-24 05:50] LABS: Albumin 2.9 g/dL (3.4-5.0); Calcium 8.4 mg/dL (8.5-10.1); Magnesium 1.4 mg/dL (1.6-2.6); Potassium 4.2 mmol/L (3.5-5.1)
[2021-03-24 05:54] LABS: BUN/Creatinine Ratio 23.8; Bilirubin, Total 1.4 mg/dL (0.2-1.0); Phosphorus 2.8 mg/dL (2.5-4.90); Total Protein 7.6 g/dL (6.4-8.2)
[2021-03-24 06:26] LABS: Folate (Folic Acid) 16.9 ng/mL (5.38-24)
[2021-03-24] MEDS: Ensure Enlive Strawberry 8oz Bottle PO SCH ×3 (08:00→18:09)
[2021-03-24 09:17] VITALS: BP 113/82
[2021-03-24] MEDS: OLANZapine 5 MG TAB PO SCH ×2 (09:57→21:50)
[2021-03-24] MEDS: ASPirin 81 mg TAB PO SCH (09:57)
[2021-03-24] MEDS: levETIRAcetam 500 MG TAB PO SCH ×2 (09:57→21:50)
[2021-03-24] MEDS: ACETAMINOPHEN 325 MG TAB PO PRN (09:57)
[2021-03-24] MEDS: clonazePAM 0.5 MG TAB PO SCH (09:57)
[2021-03-24] MEDS: amLODIPine BESYLATE 5 MG TAB PO SCH (09:58)
[2021-03-24] MEDS: PANTOPRAZOLE 40 MG/10 ML VIAL INJ IV SCH (09:58)
[2021-03-24] MEDS: cefTRIAXone 1GM/50ML D5W 50 ML IV SCH (09:58)
[2021-03-24] MEDS: SODIUM CHLOR 0.9% PF (SALINE LOCK) 10ML VIAL/SYR IV SCH ×2 (09:58→21:50)
[2021-03-24] MEDS: ENOXAPARIN SOD 40 MG/0.4 ML SYRINGE SC SCH (09:59)
[2021-03-24 12:38] VITALS: BP 115/71
[2021-03-24 16:50] VITALS: BP 131/82
[2021-03-24] MEDS: DOXYCYCLINE 100MG/250ML 250 ML IV SCH (18:34)
[2021-03-24] MEDS ORDERED: IPRATROPIUM BROM 0.5 MG/2.5ML INH SOL NEB PRN (19:15)
[2021-03-24] MEDS ORDERED: ALBUTEROL SULF 2.5 MG/0.5ML(0.5%) NEB SOLN NEB PRN (19:15)
[2021-03-24] MEDS: MORPHINE SULFATE INJECTION 2 MG/ML SYRG IV PRN (20:06)
[2021-03-24] MEDS: ONDANSETRON HCL 4 MG/2 ML VIAL IV PRN (20:06)
[2021-03-24] MEDS: MAGNESIUM SULFATE 1GM/100ML 100 ML IV SCH ×3 (20:39→23:00)
[2021-03-24 21:13] VITALS: BP 131/82
[2021-03-24 21:41] VITALS: BP 118/82
[2021-03-24] MEDS: GABAPENTIN 300 MG CAP PO SCH (21:50)
[2021-03-25] MEDS: MAGNESIUM SULFATE 1GM/100ML 100 ML IV SCH (00:09)
[2021-03-25] MEDS: MORPHINE SULFATE INJECTION 2 MG/ML SYRG IV PRN ×2 (04:08→22:12)
[2021-03-25 04:10] LABS: Basophils # (auto) 0 10 ^3/uL (0-0.2); Basophils % (auto) 0.6 % (0.0-2.0); Eosinophils # (auto) 0 10 ^3/uL (0-0.8); Eosinophils % (auto) 0.3 % (0.0-7.0); Hematocrit 33.3 % (41.0-53.0); Hemoglobin 11.6 g/dL (13.5-17.5); Lymphocytes # (auto) 0.7 10 ^3/uL (0.4-5.4); Lymphocytes % (auto) 10.6 % (10.0-50.0); Mean Corpuscular Hgb Conc. 34.9 g/dL (32.0-36.0); Mean Corpuscular Volume 91.9 fL (80.0-100.0); Monocytes # (auto) 1.1 10 ^3/uL (0-1.3); Monocytes % (auto) 16.6 % (0.0-12.0); Neutrophils # (auto) 4.8 10 ^3/uL (1.6-8.6); Neutrophils % (auto) 71.9 % (37.0-80.0); Red Blood Cells 3.62 10^6/uL (4.5-5.90); Red Cell Distribution Width 14.6 % (11.8-14.3); White Blood Cell 6.7 10^3/uL (4.4-10.8)
[2021-03-25 04:22] LABS: Potassium 3.4 mmol/L (3.5-5.1)
[2021-03-25 04:28] LABS: Albumin 2.7 g/dL (3.4-5.0); BUN/Creatinine Ratio 20.7; Bilirubin, Total 1.7 mg/dL (0.2-1.0); Magnesium 2.2 mg/dL (1.6-2.6); Total Protein 7.3 g/dL (6.4-8.2)
[2021-03-25] MEDS: ONDANSETRON HCL 4 MG/2 ML VIAL IV PRN ×3 (04:43→22:12)
[2021-03-25] MEDS: metroNIDAZOLE 500MG/100ML 100 ML IV SCH ×3 (05:13→22:11)
[2021-03-25 05:20] VITALS: BP 122/70
[2021-03-25] MEDS: InsuLIN REG 1unit/0.01ml Soln (100units/ml) SC SCH ×4 (06:00→23:51)
[2021-03-25] MEDS: ACCU-CHEK COMFORT CURVE STRIP VI SCH ×4 (06:03→23:50)
[2021-03-25] MEDS: CALCIUM ACETATE 667 MG CAP PO SCH ×3 (06:03→22:11)
[2021-03-25] MEDS: DOXYCYCLINE 100MG/250ML 250 ML IV SCH ×2 (06:04→18:00)
[2021-03-25] MEDS: Ensure Enlive Strawberry 8oz Bottle PO SCH ×3 (08:00→22:10)
[2021-03-25 09:00] VITALS: BP 121/86
[2021-03-25] MEDS: cefTRIAXone 1GM/50ML D5W 50 ML IV SCH (10:06)
[2021-03-25] MEDS: ENOXAPARIN SOD 40 MG/0.4 ML SYRINGE SC SCH (10:06)
[2021-03-25] MEDS: PANTOPRAZOLE 40 MG/10 ML VIAL INJ IV SCH (10:06)
[2021-03-25] MEDS: OLANZapine 5 MG TAB PO SCH ×2 (10:07→22:11)
[2021-03-25] MEDS: levETIRAcetam 500 MG TAB PO SCH ×2 (10:07→22:11)
[2021-03-25] MEDS: ASPirin 81 mg TAB PO SCH (10:07)
[2021-03-25] MEDS: clonazePAM 0.5 MG TAB PO SCH (10:07)
[2021-03-25] MEDS: amLODIPine BESYLATE 5 MG TAB PO SCH (10:08)
[2021-03-25] MEDS: SODIUM CHLOR 0.9% PF (SALINE LOCK) 10ML VIAL/SYR IV SCH ×2 (10:08→22:11)
[2021-03-25] MEDS: ACETAMINOPHEN 325 MG TAB PO PRN (10:20)
[2021-03-25] MEDS ORDERED: MICAFUNGIN SODIUM 100 MG in SODIUM CHL 0.9% 100 ML IV ONE (11:45)
[2021-03-25 17:27] VITALS: BP 127/84
[2021-03-25 21:54] VITALS: BP 110/72
[2021-03-25] MEDS: GABAPENTIN 300 MG CAP PO SCH (22:11)
[2021-03-26 04:49] VITALS: BP 125/78
[2021-03-26] MEDS: metroNIDAZOLE 500MG/100ML 100 ML IV SCH ×3 (05:45→21:24)
[2021-03-26] MEDS: InsuLIN REG 1unit/0.01ml Soln (100units/ml) SC SCH ×3 (06:00→17:43)
[2021-03-26] MEDS: CALCIUM ACETATE 667 MG CAP PO SCH ×3 (06:01→21:23)
[2021-03-26] MEDS: ACCU-CHEK COMFORT CURVE STRIP VI SCH ×3 (06:01→17:43)
[2021-03-26] MEDS: MORPHINE SULFATE INJECTION 2 MG/ML SYRG IV PRN ×2 (06:02→20:33)
[2021-03-26] MEDS: DOXYCYCLINE 100MG/250ML 250 ML IV SCH ×2 (06:46→17:43)
[2021-03-26] MEDS: Ensure Enlive Strawberry 8oz Bottle PO SCH ×3 (08:00→18:27)
[2021-03-26 08:48] VITALS: BP 102/53
[2021-03-26] MEDS: amLODIPine BESYLATE 5 MG TAB PO SCH (10:00)
[2021-03-26] MEDS: levETIRAcetam 500 MG TAB PO SCH ×2 (10:06→21:23)
[2021-03-26] MEDS: PANTOPRAZOLE 40 MG/10 ML VIAL INJ IV SCH (10:06)
[2021-03-26] MEDS: cefTRIAXone 1GM/50ML D5W 50 ML IV SCH (10:06)
[2021-03-26] MEDS: ASPirin 81 mg TAB PO SCH (10:06)
[2021-03-26] MEDS: ACETAMINOPHEN 325 MG TAB PO PRN (10:07)
[2021-03-26] MEDS: OLANZapine 5 MG TAB PO SCH ×2 (10:07→21:22)
[2021-03-26] MEDS: ENOXAPARIN SOD 40 MG/0.4 ML SYRINGE SC SCH (10:07)
[2021-03-26] MEDS: clonazePAM 0.5 MG TAB PO SCH (10:07)
[2021-03-26] MEDS: SODIUM CHLOR 0.9% PF (SALINE LOCK) 10ML VIAL/SYR IV SCH ×2 (10:08→22:06)
[2021-03-26] MEDS: MICAFUNGIN SODIUM 100 MG in SODIUM CHL 0.9% 100 ML IV SCH (10:47)
[2021-03-26 13:00] VITALS: BP 96/64
[2021-03-26 17:00] VITALS: BP 104/68
[2021-03-26] MEDS: ceFAZolin 2 GM in D5W 5% 100 ML IV SCH (20:55)
[2021-03-26] MEDS: GABAPENTIN 300 MG CAP PO SCH (21:23)
[2021-03-26 22:00] VITALS: BP 125/67
[2021-03-26] MEDS: NYSTATIN TOPICAL POWDER 15GM TOP SCH (22:05)
[2021-03-27] MEDS: ceFAZolin 2 GM in D5W 5% 100 ML IV SCH ×3 (04:55→20:58)
[2021-03-27 05:00] VITALS: BP 113/70
[2021-03-27] MEDS: CALCIUM ACETATE 667 MG CAP PO SCH ×3 (05:18→23:13)
[2021-03-27] MEDS: MORPHINE SULFATE INJECTION 2 MG/ML SYRG IV PRN (05:20)
[2021-03-27] MEDS: InsuLIN REG 1unit/0.01ml Soln (100units/ml) SC SCH ×5 (06:00→23:16)
[2021-03-27] MEDS: ACCU-CHEK COMFORT CURVE STRIP VI SCH ×5 (06:06→23:15)
[2021-03-27] MEDS: metroNIDAZOLE 500MG/100ML 100 ML IV SCH (06:31)
[2021-03-27] MEDS: Ensure Enlive Strawberry 8oz Bottle PO SCH ×3 (08:00→23:12)
[2021-03-27 08:39] VITALS: BP 130/78
[2021-03-27] MEDS: SODIUM CHLOR 0.9% PF (SALINE LOCK) 10ML VIAL/SYR IV SCH ×2 (10:53→23:12)
[2021-03-27] MEDS: clonazePAM 0.5 MG TAB PO SCH (10:53)
[2021-03-27] MEDS: MICAFUNGIN SODIUM 100 MG in SODIUM CHL 0.9% 100 ML IV SCH (10:53)
[2021-03-27] MEDS: PANTOPRAZOLE 40 MG/10 ML VIAL INJ IV SCH (10:53)
[2021-03-27] MEDS: levETIRAcetam 500 MG TAB PO SCH ×2 (10:53→23:13)
[2021-03-27] MEDS: ASPirin 81 mg TAB PO SCH (10:53)
[2021-03-27] MEDS: amLODIPine BESYLATE 5 MG TAB PO SCH (10:54)
[2021-03-27] MEDS: ENOXAPARIN SOD 40 MG/0.4 ML SYRINGE SC SCH (10:54)
[2021-03-27] MEDS: OLANZapine 5 MG TAB PO SCH ×2 (10:54→23:13)
[2021-03-27] MEDS: NYSTATIN TOPICAL POWDER 15GM TOP SCH ×2 (10:55→23:14)
[2021-03-27 13:00] VITALS: BP 107/79
[2021-03-27 17:00] VITALS: BP 122/70
[2021-03-27 21:46] VITALS: BP 126/77
[2021-03-27] MEDS: GABAPENTIN 300 MG CAP PO SCH (23:13)
[2021-03-28 02:48] VITALS: BP 126/77
[2021-03-28 05:00] VITALS: BP 121/66
[2021-03-28] MEDS: InsuLIN REG 1unit/0.01ml Soln (100units/ml) SC SCH ×4 (06:00→23:48)
[2021-03-28] MEDS: ACCU-CHEK COMFORT CURVE STRIP VI SCH ×4 (06:00→23:48)
[2021-03-28] MEDS: ceFAZolin 2 GM in D5W 5% 100 ML IV SCH ×3 (06:44→20:32)
[2021-03-28] MEDS: CALCIUM ACETATE 667 MG CAP PO SCH ×3 (06:45→22:43)
[2021-03-28] MEDS: MORPHINE SULFATE INJECTION 2 MG/ML SYRG IV PRN (06:46)
[2021-03-28 07:21] LABS: Basophils # (auto) 0.1 10 ^3/uL (0-0.2); Basophils % (auto) 0.8 % (0.0-2.0); Eosinophils # (auto) 0.1 10 ^3/uL (0-0.8); Hematocrit 32.9 % (41.0-53.0); Hemoglobin 11.1 g/dL (13.5-17.5); Lymphocytes % (auto) 11.4 % (10.0-50.0); Mean Corpuscular Hemoglobin 30.8 pg (28.0-32.0); Mean Corpuscular Hgb Conc. 33.8 g/dL (32.0-36.0); Mean Corpuscular Volume 91.2 fL (80.0-100.0); Monocytes # (auto) 0.7 10 ^3/uL (0-1.3); Monocytes % (auto) 7.9 % (0.0-12.0); Neutrophils % (auto) 78.9 % (37.0-80.0); Nucleated Red Blood Cells % 0.1 %; Red Blood Cells 3.61 10^6/uL (4.5-5.90); Red Cell Distribution Width 14.5 % (11.8-14.3); White Blood Cell 8.9 10^3/uL (4.4-10.8)
[2021-03-28 07:33] LABS: Potassium 3.4 mmol/L (3.5-5.1)
[2021-03-28 07:37] LABS: BUN/Creatinine Ratio 16.2; Calcium 8.5 mg/dL (8.5-10.1)
[2021-03-28 08:39] VITALS: BP 120/62
[2021-03-28] MEDS: PANTOPRAZOLE 40 MG/10 ML VIAL INJ IV SCH (10:31)
[2021-03-28] MEDS: ENOXAPARIN SOD 40 MG/0.4 ML SYRINGE SC SCH (10:31)
[2021-03-28] MEDS: OLANZapine 5 MG TAB PO SCH ×2 (10:32→22:43)
[2021-03-28] MEDS: ASPirin 81 mg TAB PO SCH (10:32)
[2021-03-28] MEDS: clonazePAM 0.5 MG TAB PO SCH (10:32)
[2021-03-28] MEDS: levETIRAcetam 500 MG TAB PO SCH ×2 (10:32→22:43)
[2021-03-28] MEDS: NYSTATIN TOPICAL POWDER 15GM TOP SCH ×2 (10:33→22:43)
[2021-03-28] MEDS: amLODIPine BESYLATE 5 MG TAB PO SCH (10:33)
[2021-03-28] MEDS: Ensure Enlive Strawberry 8oz Bottle PO SCH ×3 (10:34→17:16)
[2021-03-28] MEDS: MICAFUNGIN SODIUM 100 MG in SODIUM CHL 0.9% 100 ML IV SCH (10:34)
[2021-03-28] MEDS: SODIUM CHLOR 0.9% PF (SALINE LOCK) 10ML VIAL/SYR IV SCH ×2 (10:45→22:44)
[2021-03-28 12:39] VITALS: BP 118/64
[2021-03-28] MEDS: HALOPERIDOL LACTATE 5 MG/ML INJ VIAL IM PRN (15:44)
[2021-03-28 16:54] VITALS: BP 121/68
[2021-03-28] MEDS: GABAPENTIN 300 MG CAP PO SCH (22:42)
[2021-03-29] MEDS: ceFAZolin 2 GM in D5W 5% 100 ML IV SCH ×3 (04:40→21:04)
[2021-03-29 05:26] VITALS: BP 99/64
[2021-03-29] MEDS: InsuLIN REG 1unit/0.01ml Soln (100units/ml) SC SCH ×3 (05:33→17:28)
[2021-03-29] MEDS: CALCIUM ACETATE 667 MG CAP PO SCH ×3 (05:33→23:43)
[2021-03-29] MEDS: ACCU-CHEK COMFORT CURVE STRIP VI SCH ×3 (05:33→17:41)
[2021-03-29 05:56] VITALS: BP 108/68
[2021-03-29 07:40] LABS: Basophils # (auto) 0.1 10 ^3/uL (0-0.2); Basophils % (auto) 0.5 % (0.0-2.0); Eosinophils # (auto) 0.1 10 ^3/uL (0-0.8); Eosinophils % (auto) 1.3 % (0.0-7.0); Hematocrit 33.3 % (41.0-53.0); Hemoglobin 11.4 g/dL (13.5-17.5); Lymphocytes # (auto) 1.1 10 ^3/uL (0.4-5.4); Mean Corpuscular Hemoglobin 31.6 pg (28.0-32.0); Mean Corpuscular Hgb Conc. 34.2 g/dL (32.0-36.0); Mean Corpuscular Volume 92.3 fL (80.0-100.0); Monocytes # (auto) 0.8 10 ^3/uL (0-1.3); Monocytes % (auto) 7.5 % (0.0-12.0); Neutrophils # (auto) 8.8 10 ^3/uL (1.6-8.6); Neutrophils % (auto) 80.7 % (37.0-80.0); Red Blood Cells 3.61 10^6/uL (4.5-5.90); Red Cell Distribution Width 14.9 % (11.8-14.3)
[2021-03-29 07:50] LABS: Calcium 8.5 mg/dL (8.5-10.1); Potassium 3.5 mmol/L (3.5-5.1)
[2021-03-29 07:56] LABS: BUN/Creatinine Ratio 20.4
[2021-03-29] MEDS: PANTOPRAZOLE 40 MG/10 ML VIAL INJ IV SCH (09:37)
[2021-03-29] MEDS: levETIRAcetam 500 MG TAB PO SCH ×2 (09:38→23:43)
[2021-03-29] MEDS: OLANZapine 5 MG TAB PO SCH ×2 (09:38→23:44)
[2021-03-29] MEDS: ENOXAPARIN SOD 40 MG/0.4 ML SYRINGE SC SCH (09:38)
[2021-03-29] MEDS: clonazePAM 0.5 MG TAB PO SCH (09:38)
[2021-03-29] MEDS: ASPirin 81 mg TAB PO SCH (09:38)
[2021-03-29] MEDS: MORPHINE SULFATE INJECTION 2 MG/ML SYRG IV PRN ×2 (09:39→17:14)
[2021-03-29] MEDS: Ensure Enlive Strawberry 8oz Bottle PO SCH ×3 (09:40→18:00)
[2021-03-29] MEDS: MICAFUNGIN SODIUM 100 MG in SODIUM CHL 0.9% 100 ML IV SCH (09:40)
[2021-03-29] MEDS: SODIUM CHLOR 0.9% PF (SALINE LOCK) 10ML VIAL/SYR IV SCH ×2 (10:11→23:44)
[2021-03-29] MEDS: amLODIPine BESYLATE 5 MG TAB PO SCH (10:12)
[2021-03-29] MEDS: NYSTATIN TOPICAL POWDER 15GM TOP SCH ×2 (10:12→23:45)
[2021-03-29 13:00] VITALS: BP 117/72
[2021-03-29] MEDS: LORazepam 2MG/ML-1ML VIAL IV PRN (15:44)
[2021-03-29 17:00] VITALS: BP 126/85
[2021-03-29 20:00] VITALS: BP 117/80
[2021-03-29] MEDS: GABAPENTIN 300 MG CAP PO SCH (23:43)
[2021-03-30] MEDS: ONDANSETRON HCL 4 MG/2 ML VIAL IV PRN (00:40)
[2021-03-30] MEDS: MORPHINE SULFATE INJECTION 2 MG/ML SYRG IV PRN ×2 (00:42→14:12)
[2021-03-30] MEDS: ceFAZolin 2 GM in D5W 5% 100 ML IV SCH ×3 (05:54→22:41)
[2021-03-30] MEDS: CALCIUM ACETATE 667 MG CAP PO SCH ×3 (05:54→21:40)
[2021-03-30] MEDS: ACCU-CHEK COMFORT CURVE STRIP VI SCH ×4 (05:54→18:00)
[2021-03-30] MEDS: InsuLIN REG 1unit/0.01ml Soln (100units/ml) SC SCH ×4 (05:55→18:00)
[2021-03-30] MEDS: Ensure Enlive Strawberry 8oz Bottle PO SCH ×3 (08:00→18:00)
[2021-03-30] MEDS ORDERED: LIDOCAINE VISCOUS 2% 15ML UD PO ONE (08:45)
[2021-03-30] MEDS ORDERED: diphenhdrAMINE HCL 50 MG/1 ML VL IV ONE (08:45)
[2021-03-30] MEDS ORDERED: fentaNYL CITRATE 100 MCG/2 ML VL IV ONE (08:45)
[2021-03-30] MEDS ORDERED: MIDAZOLAM HCL 2MG/2ML 2ml VIAL (1mg/ml) IV ONE (08:45)
[2021-03-30] MEDS: ENOXAPARIN SOD 40 MG/0.4 ML SYRINGE SC SCH (10:00)
[2021-03-30] MEDS: SODIUM CHLOR 0.9% PF (SALINE LOCK) 10ML VIAL/SYR IV SCH ×2 (10:00→21:42)
[2021-03-30] MEDS: ASPirin 81 mg TAB PO SCH (10:00)
[2021-03-30] MEDS: clonazePAM 0.5 MG TAB PO SCH (10:00)
[2021-03-30] MEDS: NYSTATIN TOPICAL POWDER 15GM TOP SCH ×2 (10:00→21:42)
[2021-03-30] MEDS: PANTOPRAZOLE 40 MG/10 ML VIAL INJ IV SCH (10:00)
[2021-03-30] MEDS: amLODIPine BESYLATE 5 MG TAB PO SCH (10:00)
[2021-03-30] MEDS: MICAFUNGIN SODIUM 100 MG in SODIUM CHL 0.9% 100 ML IV SCH (10:00)
[2021-03-30] MEDS: levETIRAcetam 500 MG TAB PO SCH ×2 (10:00→21:41)
[2021-03-30] MEDS: OLANZapine 5 MG TAB PO SCH ×2 (10:00→21:41)
[2021-03-30 13:00] VITALS: BP 128/85
[2021-03-30 13:59] LABS: Basophils # (auto) 0.1 10 ^3/uL (0-0.2); Basophils % (auto) 0.9 % (0.0-2.0); Eosinophils # (auto) 0.1 10 ^3/uL (0-0.8); Eosinophils % (auto) 1.1 % (0.0-7.0); Hematocrit 32.9 % (41.0-53.0); Lymphocytes # (auto) 1.1 10 ^3/uL (0.4-5.4); Lymphocytes % (auto) 8.4 % (10.0-50.0); Mean Corpuscular Hemoglobin 30.9 pg (28.0-32.0); Mean Corpuscular Hgb Conc. 33.4 g/dL (32.0-36.0); Mean Corpuscular Volume 92.6 fL (80.0-100.0); Monocytes # (auto) 0.9 10 ^3/uL (0-1.3); Monocytes % (auto) 6.7 % (0.0-12.0); Neutrophils # (auto) 10.7 10 ^3/uL (1.6-8.6); Neutrophils % (auto) 82.9 % (37.0-80.0); Red Blood Cells 3.55 10^6/uL (4.5-5.90); White Blood Cell 12.9 10^3/uL (4.4-10.8)
[2021-03-30 14:15] LABS: INR 1.24 (0.9-1.15); Partial Thromboplastin Time 28.7 sec (23.0-31.2)
[2021-03-30 14:28] LABS: BUN/Creatinine Ratio 16.4; Calcium 8.4 mg/dL (8.5-10.1); Potassium 3.5 mmol/L (3.5-5.1)
[2021-03-30] MEDS ORDERED: GADOTERATE MEG 10 MMOL/20ml INJ (0.5MMOL/ml) IV ONE (15:25)
[2021-03-30] MEDS: LORazepam 2MG/ML-1ML VIAL IV PRN ×2 (16:04→21:40)
[2021-03-30 17:00] VITALS: BP 107/82
[2021-03-30 18:26] VITALS: BP 107/82
[2021-03-30] MEDS: GABAPENTIN 300 MG CAP PO SCH (21:42)
[2021-03-30 22:00] VITALS: BP 112/71
[2021-03-31] MEDS: ACCU-CHEK COMFORT CURVE STRIP VI SCH ×5 (01:05→23:31)
[2021-03-31 05:00] VITALS: BP 122/72
[2021-03-31] MEDS: ceFAZolin 2 GM in D5W 5% 100 ML IV SCH ×3 (05:35→21:06)
[2021-03-31] MEDS: CALCIUM ACETATE 667 MG CAP PO SCH ×3 (05:35→21:43)
[2021-03-31] MEDS: InsuLIN REG 1unit/0.01ml Soln (100units/ml) SC SCH ×5 (05:35→23:31)
[2021-03-31 08:00] VITALS: BP 115/71
[2021-03-31] MEDS: Ensure Enlive Strawberry 8oz Bottle PO SCH ×3 (08:25→18:22)
[2021-03-31 09:00] VITALS: BP 115/71
[2021-03-31] MEDS: PANTOPRAZOLE 40 MG/10 ML VIAL INJ IV SCH (10:32)
[2021-03-31] MEDS: SODIUM CHLOR 0.9% PF (SALINE LOCK) 10ML VIAL/SYR IV SCH ×2 (10:32→21:42)
[2021-03-31] MEDS: MICAFUNGIN SODIUM 100 MG in SODIUM CHL 0.9% 100 ML IV SCH (10:32)
[2021-03-31] MEDS: ASPirin 81 mg TAB PO SCH (10:32)
[2021-03-31] MEDS: levETIRAcetam 500 MG TAB PO SCH ×2 (10:32→21:42)
[2021-03-31] MEDS: OLANZapine 5 MG TAB PO SCH ×2 (10:33→21:43)
[2021-03-31] MEDS: clonazePAM 0.5 MG TAB PO SCH (10:33)
[2021-03-31] MEDS: NYSTATIN TOPICAL POWDER 15GM TOP SCH ×2 (10:33→21:43)
[2021-03-31] MEDS: ENOXAPARIN SOD 40 MG/0.4 ML SYRINGE SC SCH (10:33)
[2021-03-31] MEDS: LORazepam 2MG/ML-1ML VIAL IV PRN ×2 (10:33→14:40)
[2021-03-31] MEDS: amLODIPine BESYLATE 5 MG TAB PO SCH (10:33)
[2021-03-31] MEDS ORDERED: LIDOCAINE 1% (LOCAL ANESTH.) PF 5ml SDV ID ONE (15:45)
[2021-03-31 17:00] VITALS: BP 129/84
[2021-03-31] MEDS: MORPHINE SULFATE INJECTION 2 MG/ML SYRG IV PRN (18:24)
[2021-03-31] MEDS: GABAPENTIN 300 MG CAP PO SCH (21:42)
[2021-03-31 22:00] VITALS: BP 129/79
[2021-04-01] VITALS (8 sets, daily range): BP systolic 104–142; BP diastolic 70–83
[2021-04-01] MEDS: MORPHINE SULFATE INJECTION 2 MG/ML SYRG IV PRN (00:21)
[2021-04-01] MEDS: LORazepam 2MG/ML-1ML VIAL IV PRN ×2 (03:01→16:17)
[2021-04-01] MEDS: ceFAZolin 2 GM in D5W 5% 100 ML IV SCH ×3 (05:03→20:46)
[2021-04-01] MEDS: CALCIUM ACETATE 667 MG CAP PO SCH ×3 (05:03→21:48)
[2021-04-01] MEDS: InsuLIN REG 1unit/0.01ml Soln (100units/ml) SC SCH ×3 (05:29→23:28)
[2021-04-01] MEDS: ACCU-CHEK COMFORT CURVE STRIP VI SCH ×3 (05:30→23:29)
[2021-04-01] MEDS: Ensure Enlive Strawberry 8oz Bottle PO SCH ×2 (08:19→12:47)
[2021-04-01] MEDS: MICAFUNGIN SODIUM 100 MG in SODIUM CHL 0.9% 100 ML IV SCH (10:21)
[2021-04-01] MEDS: clonazePAM 0.5 MG TAB PO SCH (10:22)
[2021-04-01] MEDS: levETIRAcetam 500 MG TAB PO SCH ×2 (10:22→21:47)
[2021-04-01] MEDS: OLANZapine 5 MG TAB PO SCH ×2 (10:22→21:51)
[2021-04-01] MEDS: SODIUM CHLOR 0.9% PF (SALINE LOCK) 10ML VIAL/SYR IV SCH ×2 (10:23→21:47)
[2021-04-01] MEDS: amLODIPine BESYLATE 5 MG TAB PO SCH (10:23)
[2021-04-01] MEDS: ASPirin 81 mg TAB PO SCH (10:23)
[2021-04-01] MEDS: PANTOPRAZOLE 40 MG/10 ML VIAL INJ IV SCH (10:23)
[2021-04-01] MEDS: ENOXAPARIN SOD 40 MG/0.4 ML SYRINGE SC SCH (10:24)
[2021-04-01] MEDS: NYSTATIN TOPICAL POWDER 15GM TOP SCH ×2 (10:26→21:48)
[2021-04-01 10:45] LABS: Albumin 2.3 g/dL (3.4-5.0); Calcium 8.3 mg/dL (8.5-10.1); Potassium 3.5 mmol/L (3.5-5.1)
[2021-04-01 10:49] LABS: BUN/Creatinine Ratio 21.8; Bilirubin, Total 1.1 mg/dL (0.2-1.0); Total Protein 7.1 g/dL (6.4-8.2)
[2021-04-01] MEDS: DOCUSATE SOD 100 MG CAP PO SCH (21:47)
[2021-04-01] MEDS: GABAPENTIN 300 MG CAP PO SCH (21:48)
[2021-04-02] MEDS: ACCU-CHEK COMFORT CURVE STRIP VI SCH ×2 (00:08→05:43)
[2021-04-02] MEDS: ceFAZolin 2 GM in D5W 5% 100 ML IV SCH (05:00)
[2021-04-02 05:15] VITALS: BP 138/85
[2021-04-02] MEDS: InsuLIN REG 1unit/0.01ml Soln (100units/ml) SC SCH (05:42)
[2021-04-02] MEDS: CALCIUM ACETATE 667 MG CAP PO SCH (05:50)
[2021-04-02] MEDS: Ensure Enlive Strawberry 8oz Bottle PO SCH (08:33)
[2021-04-02 09:00] VITALS: BP 108/68
[2021-04-02] MEDS: PANTOPRAZOLE 40 MG/10 ML VIAL INJ IV SCH (09:09)
[2021-04-02] MEDS: SODIUM CHLOR 0.9% PF (SALINE LOCK) 10ML VIAL/SYR IV SCH (09:09)
[2021-04-02] MEDS: MICAFUNGIN SODIUM 100 MG in SODIUM CHL 0.9% 100 ML IV SCH (09:09)
[2021-04-02] MEDS: ASPirin 81 mg TAB PO SCH (09:10)
[2021-04-02] MEDS: DOCUSATE SOD 100 MG CAP PO SCH (09:10)
[2021-04-02] MEDS: OLANZapine 5 MG TAB PO SCH (09:11)
[2021-04-02] MEDS: ENOXAPARIN SOD 40 MG/0.4 ML SYRINGE SC SCH (09:11)
[2021-04-02] MEDS: amLODIPine BESYLATE 5 MG TAB PO SCH (09:11)
[2021-04-02] MEDS: levETIRAcetam 500 MG TAB PO SCH (09:11)
[2021-04-02] MEDS: clonazePAM 0.5 MG TAB PO SCH (09:11)
[2021-04-02] MEDS: NYSTATIN TOPICAL POWDER 15GM TOP SCH (09:12)
[2021-04-02] MEDS ORDERED: LACTULOSE 20Gm/30ML SOLN PO SCH (10:00)
== END 2021-04-02 12:10 | DRG 720 ==
LOC: ICU WEST 01:32 → EDBD 01:32 → DOU IN ICU 03-14 22:52 → TELE-WESTW 03-18 05:30 → WEST WING 03-31 12:01
PROVIDERS: ADMIT Hospitalist; ATTEND Internal Medicine
PROC: 5A1955Z Respiratory Ventilation, Greater than 96 Consecutive Hours (ICD-10-PCS; 2021-03-08)
PROC: 0BH17EZ Insertion of Endotracheal Airway into Trachea, Via Natural or Artificial Opening (ICD-10-PCS; 2021-03-08)
PROC: 0BP1XDZ Removal of Intraluminal Device from Trachea, External Approach (ICD-10-PCS; 2021-03-12)
PROC: B24BZZ4 Ultrasonography of Heart with Aorta, Transesophageal (ICD-10-PCS; principal; 2021-03-30)
PROC: 02HV33Z Insertion of Infusion Device into Superior Vena Cava, Percutaneous Approach (ICD-10-PCS; 2021-03-31)
PROC: B548ZZA Ultrasonography of Superior Vena Cava, Guidance (ICD-10-PCS; 2021-03-31)
DX: A41.01 Sepsis due to Methicillin susceptible Staphylococcus aureus (principal); I21.4 Non-ST elevation (NSTEMI) myocardial infarction; J96.01 Acute respiratory failure with hypoxia; D65 Disseminated intravascular coagulation [defibrination syndrome]; J15.211 Pneumonia due to Methicillin susceptible Staphylococcus aureus; K72.00 Acute and subacute hepatic failure without coma; J18.0 Bronchopneumonia, unspecified organism; E44.0 Moderate protein-calorie malnutrition; B49 Unspecified mycosis; I50.22 Chronic systolic (congestive) heart failure; Z20.822 Contact with and (suspected) exposure to COVID-19; R57.0 Cardiogenic shock; N17.0 Acute kidney failure with tubular necrosis; R65.21 Severe sepsis with septic shock; G92 Toxic encephalopathy; R47.01 Aphasia; R16.0 Hepatomegaly, not elsewhere classified; G40.909 Epilepsy, unspecified, not intractable, without status epilepticus; M62.82 Rhabdomyolysis; E87.2 Acidosis; K80.20 Calculus of gallbladder without cholecystitis without obstruction; E87.6 Hypokalemia; K76.0 Fatty (change of) liver, not elsewhere classified; F19.10 Other psychoactive substance abuse, uncomplicated; E16.2 Hypoglycemia, unspecified; E87.0 Hyperosmolality and hypernatremia; E83.39 Other disorders of phosphorus metabolism; F15.10 Other stimulant abuse, uncomplicated; F41.9 Anxiety disorder, unspecified; Z68.24 Body mass index [BMI] 24.0-24.9, adult; Z79.899 Other long term (current) drug therapy
CPT/HCPCS: 36415; 36569; 36600; 70450; 70551; 71045; 71275; 74176; 76705; 76775; 76881; 80048; 80053; 80061; 80074; 80076; 80202; 80307; 81001; 82040; 82140; 82306; 82542; 82550; 82570; 82607; 82746; 82805; 82962; 82977; 83036; 83520; 83605; 83735; 83880; 83970; 84100; 84156; 84300; 84443; 84478; 84484; 84550; 85007; 85025; 85027; 85379; 85384; 85610; 85730; 86038; 86160; 86256; 86703; 86704; 86706; 86708; 86803; 87040; 87070; 87077; 87081; 87086; 87186; 87205; 87340; 87426; 92507; 92610; 93005; 93306; 93312; 93970; 94003; 94640; 95819; 99152; A4565; A4618; C9113; G0378; J0690; J0696; J1815; J2185; J2248; J2250; J2405; J2543; J2590; J2704; J3480; J3490; J7060; J7131